=== PATIENT | male | born 1935 | race Caucasian/White ===

== ENCOUNTER → 2021-02-20 16:12 | Outpatient (CLI) | payer MEDICARE, SELFPAY ==
--- NOTE | ~2021-02-20 | XR_ITS ---
EXAMINATION: XR lumbar spine 2-3V DATE: 02/20/2021 16:57 INDICATION: Thoracic back pain. Right pelvic pain. TECHNIQUE: 3 views of the lumbar spine were obtained. COMPARISON: Lumbar spine radiographs 04/29/2016 FINDINGS: There is 6 degrees levocurvature of lumbar spine. There is 3 mm retrolisthesis of L1 on L2 and L2 on L3. Vertebral body heights are normal. There is severely decreased disc height from L1-L2 t hrough L3-L4, mildly decreased disc height at L4-L5, and moderately decreased disc height at L5-S1 wi th endplate remodeling. There is multilevel severe facet joint osteoarthritis. There is Baastrup dise ase from L2-L3 through L4-L5. IMPRESSION: 1. Severe lumbar spondylosis, worsened from 04/29/2016. Reviewed, dictated and finalized at location A.
--- NOTE | ~2021-02-20 | XR_ITS ---
EXAMINATION: XR thoracic spine 2V DATE: 02/20/2021 16:57 INDICATION: Thoracic back pain. TECHNIQUE: 3 views of thoracic spine on 4 radiographs were obtained. COMPARISON: Chest 2 views 12/30/2016 FINDINGS: There is 4 degrees dextrocurvature of thoracic spine. There is kyphosis of thoracic spine. There is mild chronic anterior wedging of T11 and T12 vertebral bodies. There are endplate osteophyte s at all levels. There are bridging endplate osteophytes from T4 to T11, consistent with diffuse idio pathic skeletal hyperostosis (DISH). There is mildly decreased disc height at multiple levels in uppe r thoracic spine. There are pacer wires in right atrium and right ventricle. IMPRESSION: 1. Mild thoracic spondylosis. 2. DISH. Reviewed, dictated and finalized at location A.
--- NOTE | ~2021-02-20 | XR_ITS ---
EXAMINATION: XR pelvis 1-2V DATE: 02/20/2021 16:57 INDICATION: Right pelvic pain. TECHNIQUE: An anteroposterior view of the pelvis was obtained on 2 radiographs. COMPARISON: None. FINDINGS: Bone alignment is normal. No fracture. There is severe lumbar spondylosis. There is mild os teoarthritis of the hips. IMPRESSION: 1. Mild osteoarthritis of the hips. Reviewed, dictated and finalized at location A.
--- NOTE | ~2021-02-20 | XR_ITS ---
EXAMINATION: XR sacroiliac joints min 3V DATE: 02/20/2021 16:57 INDICATION: Right sacroiliac joint pain. TECHNIQUE: 3 views of the sacroiliac joints were obtained. COMPARISON: None. FINDINGS: Bone alignment is normal. No fracture. There is mild osteoarthritis of the sacroiliac joint s. There is severe lumbar spondylosis. IMPRESSION: 1. Mild osteoarthritis of the sacroiliac joints. No evidence of inflammatory arthropathy. Reviewed, dictated and finalized at location A. IMPRESSION: 1. Mild osteoarthritis of the sacroiliac joints. No evidence of inflammatory ar thropathy.
== END ==
PROVIDERS: PCP Internal Medicine; Visit Provider Internal Medicine
DX: G89.29 Other chronic pain (principal); M54.6 Pain in thoracic spine; M47.814 Spondylosis without myelopathy or radiculopathy, thoracic region; M48.14 Ankylosing hyperostosis [Forestier], thoracic region; M47.816 Spondylosis without myelopathy or radiculopathy, lumbar region; M47.898 Other spondylosis, sacral and sacrococcygeal region; M16.0 Bilateral primary osteoarthritis of hip
CPT/HCPCS: 72070; 72100; 72170; 72202

== ENCOUNTER 2022-10-17 03:08 | Day surgery (SDC) | payer MEDICARE, SELFPAY ==
[2022-10-10 12:59] VITALS: BMI 33.8
[2022-10-17 12:53] VITALS: BP 150/71; PULSE 97; RESP 20; TEMP 36.4; O2SAT 99
[2022-10-17] MEDS: LACTATED RINGERS 1,000 ML 150 ML IV CONT (13:01)
--- NOTE | 2022-10-17 13:09 | PM.HPGS ---
History of Present Illness History of Present Illness Consent: Risks, benefits, and alternatives have been discussed and questions answered. Patient agrees to proceed with procedure. Chief complaint: melena, diverticulosis,diverticulitis,neoplasm Narrative: Mati Clayton is a 86 year old male Referred for colon cancer screening. He had several polyps removed about 5 years ago. Review of Systems Review of Systems: All systems reviewed & are unremarkable except as noted in HPI and below PMFSH Past Medical History Medical History A-fib Abnormal finding of blood chemistry Abnormal thyroid blood test BMI 33.0-33.9,adult BMI 34.0-34.9,adult BMI 35.0-35.9,adult BPH (benign prostatic hyperplasia) BPPV (benign paroxysmal positional vertigo) Cardiac pacemaker in situ Choking episode Chronic back pain Chronic cough Chronic low back pain Chronic right shoulder pain Cold intolerance Depressed mood Ear pain Elevated PSA Encounter for routine adult health examination with abnormal findings Encounter for routine adult health examination without abnormal findings Follow up Gross hematuria Hearing loss Hx of colonic polyps Hyperlipidemia Light-headed feeling Low back pain at multiple sites On prison drug therapy VICK on CPAP Other viral warts Overactive bladder Pain of finger of right hand Parkinsons Peripheral neuropathy Persistent postural-perceptual dizziness Right hip pain Skin tag Tremor Type 2 diabetes mellitus without complications Urinary frequency Vitamin D deficiency Surgical History Surgical History S/P cataract extraction Family History Family History Mother Family history of Alzheimer's disease Sibling Family history of diabetes mellitus in first degree relative Social History Social History Smoking status: Never smoker Second hand tobacco smoke exposure: No Alcohol intake: current Substance use: never Substance use type: does not use Lack of Transportation: No Lack of Food: Never True Current Housing: I Have Housing Concerned About Future Housing: No Difficulty Paying Gas/Electric Bills: No Difficulty Paying for Meds: No Education: Master's Degree or Higher Difficulty w/ Childcare or Family Care: No Living arrangements: with family Occupation/Education: retired Gender identity (if verbalized by the patient): Male Spiritual care concerns: No Meds Home Medications and Allergies Home Medications Medication Instructions Recorded Confirmed Type ibuprofen 200 mg tablet 200 mg PO Q6H PRN Pain 10/19/19 10/14/22 History pseudoephedrine HCl 30 mg tablet 30 mg PO Q4-6H PRN Allergy Symptoms 10/19/19 10/14/22 History (Sudafed) fesoterodine 4 mg tablet,extended 4 mg PO DAILY #90 tabs 06/09/22 10/14/22 Rx release 24 hr (Tostephanie) escitalopram oxalate 20 mg tablet See Rx Instructions .Route 06/12/22 10/14/22 Rx .COMPLEX #90 tabs finasteride 5 mg tablet See Rx Instructions .Route 06/12/22 10/14/22 Rx .COMPLEX #90 tabs rosuvastatin 40 mg tablet See Rx Instructions .Route 09/25/22 10/14/22 Rx .COMPLEX #90 tabs carbidopa 25 mg-levodopa 100 mg See Rx Instructions .Route 09/30/22 10/17/22 Rx tablet .COMPLEX #360 tabs azelastine 137 mcg (0.1 %) nasal See Rx Instructions .Route 10/10/22 10/10/22 History spray aerosol .COMPLEX PRN Allergy Symptoms tizanidine 4 mg capsule See Rx Instructions .Route 10/10/22 10/10/22 History .COMPLEX PRN Spasms metformin 500 mg tablet See Rx Instructions .Route 10/16/22 10/17/22 Rx .COMPLEX #180 tabs Allergies Allergy/AdvReac Type Severity Reaction Status Date / Time No Known Allergies Allergy Verified 10/17/22 12:50 Vital Signs Vital Signs - 24 hr 10/17/22 12:53 Temperature 36.4 C
--- NOTE | 2022-10-17 13:16 | WPDANESEPPF ---
Anes - Initial Pre Proc Eval Procedure: Operation Date: 10/17/22 14:00 Proposed Procedures p Colonoscopy - James Huntley MD Date/Time: 10/17/22 13:16 Surgeon: James Huntley MD Pre Op Diagnosis: melena, diverticulosis,diverticulitis,neoplasm Patient Data Age: 86 Gender: M Height: 1.75 m Weight: 94.1 kg Last Vital Signs Temp 97.6 F 10/17/22 12:53 Pulse 97 10/17/22 12:53 Resp 20 10/17/22 12:53 BP 150/71 H 10/17/22 12:53 Pulse Ox 99 10/17/22 12:53 O2 Del Method Room Air 10/17/22 12:53 Allergies Allergy/AdvReac Type Severity Reaction Status Date / Time No Known Allergies Allergy Verified 10/17/22 12:50 Home Medications Medication Instructions Recorded Confirmed Type ibuprofen 200 mg tablet 200 mg PO Q6H PRN Pain 10/19/19 10/14/22 History pseudoephedrine HCl 30 mg tablet 30 mg PO Q4-6H PRN Allergy Symptoms 10/19/19 10/14/22 History (Sudafed) fesoterodine 4 mg tablet,extended 4 mg PO DAILY #90 tabs 06/09/22 10/14/22 Rx release 24 hr (Toviaz) escitalopram oxalate 20 mg tablet See Rx Instructions .Route 06/12/22 10/14/22 Rx .COMPLEX #90 tabs finasteride 5 mg tablet See Rx Instructions .Route 06/12/22 10/14/22 Rx .COMPLEX #90 tabs rosuvastatin 40 mg tablet See Rx Instructions .Route 09/25/22 10/14/22 Rx .COMPLEX #90 tabs carbidopa 25 mg-levodopa 100 mg See Rx Instructions .Route 09/30/22 10/17/22 Rx tablet .COMPLEX #360 tabs azelastine 137 mcg (0.1 %) nasal See Rx Instructions .Route 10/10/22 10/10/22 History spray aerosol .COMPLEX PRN Allergy Symptoms tizanidine 4 mg capsule See Rx Instructions .Route 10/10/22 10/10/22 History .COMPLEX PRN Spasms metformin 500 mg tablet See Rx Instructions .Route 10/16/22 10/17/22 Rx .COMPLEX #180 tabs Patient hx anesthesia problems: none Family hx anesthesia problems: none Results Review: All pre-operative results and documents have been reviewed as part of the pre-operative evaluation. [facility] Past Medical History Medical History (Updated 10/09/22 @ 13:26 by Rosi Ramirez [facility]) A-fib Abnormal finding of blood chemistry Abnormal thyroid blood test BMI 33.0-33.9,adult BMI 34.0-34.9,adult BMI 35.0-35.9,adult BPH (benign prostatic hyperplasia) BPPV (benign paroxysmal positional vertigo) Cardiac pacemaker in situ Choking episode Chronic back pain Chronic cough Chronic low back pain Chronic right shoulder pain Cold intolerance Depressed mood Ear pain Elevated PSA Encounter for routine adult health examination with abnormal findings Encounter for routine adult health examination without abnormal findings Follow up Gross hematuria Hearing loss Hx of colonic polyps Hyperlipidemia Light-headed feeling Low back pain at multiple sites On continuous churn 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 VICK on CPAP Other viral warts Overactive bladder Pain of finger of right hand Parkinsons Peripheral neuropathy Persistent postural-perceptual dizziness Right hip pain Skin tag Tremor Type 2 diabetes mellitus without complications Urinary frequency Vitamin D deficiency Surgical History Surgical History S/P cataract extraction Family History Family History Mother Family history of Alzheimer's disease Sibling Family history of diabetes mellitus in first degree relative Social History Social History Smoking status: Never smoker Second hand tobacco smoke exposure: No Alcohol intake: current Substance use: never Substance use type: does not use Lack of Transportation: No Lack of Food: Never True Current Housing: I Have Housing Concerned About Future Housing: No Difficulty Paying Gas/Electric Bills: No Difficulty Paying for Meds: No Education: Master's Degree or Higher Difficulty w/ Childcare or Family Care: No Living arrangements: with famil
[2022-10-17 13:38] LABS: Glucose Point of Care 99 mg/dl (65-105)
[2022-10-17 14:06] VITALS: BP 120/70; PULSE 69; RESP 21; O2SAT 94
[2022-10-17 14:16] VITALS: BP 141/80; PULSE 66; RESP 23; O2SAT 96
[2022-10-17 14:26] VITALS: BP 141/71; PULSE 66; RESP 21; O2SAT 97
--- NOTE | 2022-10-17 14:53 | SUR.PHASEII ---
pt has parkinsons and took several minutes for pt to get dressed for discharge, then taken to restroom per w/c.
== END 2022-10-17 14:48 | disposition home or self-care (01) ==
PROVIDERS: PCP Internal Medicine; Visit Provider Internal Medicine Gastroenterology
PROC: 0DJD8ZZ Inspection of Lower Intestinal Tract, Via Natural or Artificial Opening Endoscopic (ICD-10-PCS; CPT 45378; principal; 2022-10-17 14:00)
DX: Z12.11 Encounter for screening for malignant neoplasm of colon (principal); K92.1 Melena; K57.30 Diverticulosis of large intestine without perforation or abscess without bleeding; D12.0 Benign neoplasm of cecum; I48.91 Unspecified atrial fibrillation; N40.0 Benign prostatic hyperplasia without lower urinary tract symptoms; E78.5 Hyperlipidemia, unspecified; G47.33 Obstructive sleep apnea (adult) (pediatric); G20 Parkinson's disease; E11.42 Type 2 diabetes mellitus with diabetic polyneuropathy; E55.9 Vitamin D deficiency, unspecified; Z79.84 Long term (current) use of oral hypoglycemic drugs; Z95.0 Presence of cardiac pacemaker; E66.9 Obesity, unspecified; Z68.30 Body mass index [BMI] 30.0-30.9, adult
CPT/HCPCS: 45385; 82948; 88305; J2704; J7120

== ENCOUNTER 2025-03-04 22:49 | Emergency (ER) | payer MEDICARE, SELFPAY ==
[2025-03-04] VITALS (7 sets, daily range): BP systolic 103–124; BP diastolic 53–75; PULSE 66–76; RESP 15–22; TEMP 36.6; O2SAT 100
--- NOTE | ~2025-03-04 | XR_ITS ---
Portable chest x-ray Comparison: 12/30/2016 Clinical History: GI bleed Findings: Lungs are clear, without focal consolidation or pleural effusion. Cardiomediastinal silho uette is stable, with pacemaker device. Bones and soft tissues are unremarkable. Impression: Clear lungs. Reviewed, dictated and finalized at location . Impression: Clear lungs.
--- NOTE | ~2025-03-04 | CT_ITS ---
CT of the Abdomen and Pelvis: Indication: GI bleed Technique: 2.5 mm axial scans were obtained through the abdomen and pelvis following intravenous adm inistration of 100 cc of Omnipaque 350. Dose reduction technique was used on this scan by utilizing a utomated exposure control and iterative reconstruction technique. The dose-length product (DLP) was 1 288.30 mGy-cm. COMPARISON: 04/19/2024 Findings: Scans through the lung bases are unremarkable. The liver, spleen, pancreas, gallbladder, adrenals and kidneys are within normal limits. No evidence of aortic aneurysm. No lymphadenopathy. There is curvilinear markedly hyperdense material in the mid sigmoid colon, compatible with active GI bleed in this region. This is best seen on axial images 128-139. No bowel obstruction or definite b owel wall thickening evident. Images through the pelvis were performed. Urinary bladder unremarkable. Prostate gland is markedly en larged. No ascites. Impression: Findings consistent with active GI bleed with contrast extravasation into the mid sigmoid colon. Plea se see details above. Markedly enlarged prostate gland. Reviewed, dictated and finalized at location M. Impression: Findings consistent with active GI bleed with contrast extravasation into the m id sigmoid colon. Please see details above. Markedly enlarged prostate gland.
[2025-03-04 23:08] LABS: Hematocrit 39.4 % (42.0-52.0); Hemoglobin 12.4 g/dL (14.0-18.0); Immature Granulocyte Percent A 0.4 % (0-0.5); Lymphocytes Absolute Auto 1.04 K/mm3 (0.9-3.2); Mean Corpuscular HGB Conc 31.5 g/dl (32-36); Mean Corpuscular Hemoglobin 26.7 pg (26-34); Mean Corpuscular Volume 84.7 fl (80-100); Nucleated Red Blood Cells Absolute Auto 0.000 K/mm3 (0.0-0.012); Nucleated Red Blood Cells Perc 0.0 % (0.0-0.2); Platelet Count Result 226 k/mm3 (150-375); Red Blood Count 4.65 M/mm3 (4.6-6.20); White Blood Count 6.9 K/mm3 (4.5-10.0)
[2025-03-04 23:22] LABS: INR 1.2; Partial Thromboplastin Time 28.5 Seconds (22.3-36.8); Prothrombin Time 14.7 Seconds (11.1-14.7)
--- NOTE | 2025-03-04 23:22 | ECG_ITS ---
Test Date: 2025-03-04 23:52:55 Measurements Intervals [place] Rate: 64 P: -85 NH: 136 QRS: -75 QRSD: 213 T: 91 QT: 526 QTc: 546 Interpretive Statements SINUS RHYTHM WITH ELECTRONIC VENTRICULAR PACEMAKER ATYPICAL ECG No previous ECG available for comparison Electronically Signed On 03-05-2025 11:34:22 CDT by Ghulam Castro M.D.
[2025-03-04 23:23] LABS: Alanine Aminotransferase 14 U/L (6-50); Albumin Level 3.5 g/dL (3.5-5.1); Alkaline Phosphatase 56 U/L (38-126); Anion Gap 8 mmol/L (4-12); Aspartate Amino Transferase 26 U/L (17-59); Bilirubin,Total 0.4 mg/dL (0.2-1.3); Blood Urea Nitrogen 29 mg/dL (9-20); Calcium 8.5 mg/dL (8.4-10.2); Carbon Dioxide 24 mmol/L (22-30); Chloride 106 mmol/L (98-107); Estimated CRCL calculation 41 ml/min; Estimated Glomerular Filt Rate 58; Glucose 106 mg/dL (65-110); Lipase 125 U/L (23-300); Magnesium 2.5 mg/dL (1.6-2.3); Potassium 4.6 mmol/L (3.4-5.0); Sodium 138 mmol/L (137-145); Total Protein 6.0 g/dL (6.3-8.2)
[2025-03-04] MEDS: SODIUM CHLORIDE 0.9% IV 1,000 ML 999 ML (23:44)
[2025-03-05] VITALS (39 sets, daily range): BP systolic 85–123; BP diastolic 49–84; PULSE 62–88; RESP 12–21; TEMP 36.4–36.6; O2SAT 94–100
--- OUTSIDE RECORDS SUMMARY | 2025-03-05 00:26 | XMS_ITS | Referral Summary ---
Author Organization [facility] [place] [address] [facility] [address] Address [address] [place] [address] Care Team Providers Care Metal Flooring Installer Name Role Phone Maynor Tavarez MD Primary Care Provider [phone] Encounters Date Type Department Care Team Description 01/20/2025 2:30 PM CDT Office Visit [facility] Cardiology [address] [facility] [address] [place] [address] Ana Terry NP Cardiomyopathy, unspecified type (HCC) (Primary Dx); Paroxysmal atrial fibrillation (HCC); Presence of Watchman left atrial appendage closure device; Pacemaker 01/03/2025 8:15 AM CDT Ancillary Procedure [facility] Medical [facility] Cardiology [facility] [address] [place] [phone] Mobitz type 2 second degree AV block; Pacemaker 01/02/2025 Telephone [facility] Cardiology [address] [place] [address] Advanced Medicine 8th [place] [address] [place] [phone] Alva Kaur NP see enc 12/30/24 12/30/2024 Telephone [facility] Cardiology [address] [place] [address] 8th [place] [address] [place] [address] Alva Kaur NP questions re: follow up appt 12/29/2024 Telephone [facility] Cardiology [address] [facility] 8th [place] [address] [place] [address] Alva Kaur NP 12/28/2024 2:00 PM CDT Telemedicine [facility] Cardiology [address] [place] [address] 8th [place] [address] [place] [address] Alva Kaur NP Paroxysmal atrial fibrillation (HCC) (Primary Dx) 12/14/2024 Results Follow-Up [facility] Cardiology [address] [place] [address] 8th [place] [address] [place] [address] Pelon Eagle MD PhD Transesophageal Echo (MARTINE) W Doppler/CF 12/09/2024 10:20 AM CDT Anesthesia Event [facility] [address] [phone] Faheem Nolasco MD Eddins, Daniel Raymond, SALLY 12/09/2024 Telephone [facility] Cardiology [address] [place] [address] 8th [place] [address] [place] [address] SmithSabine goel 12/09/2024 7:11 AM CDT - 12/09/2024 11:59 PM CDT Hospital Encounter [facility] [address] [address] Faheem Nolasco MD Paroxysmal atrial fibrillation (HCC) Discharge Disposition: Discharge to home or self care 12/08/2024 Telephone [facility] Cardiology [address] [place] [address] 8th [place] [address] [place] [address] Pelon Eagle MD PhD echo inquiry 12/08/2024 Telephone [facility] V[facility] [address] [phone] Joseline Evans RN from Last 3 Months Allergies Active Allergy Reactions Criticality Noted Date Comments Bee Pollen Eye irritation High 01/06/2023 Eyes water and itch Medications rosuvastatin (CRESTOR) 20 mg tablet take 1 tablet by oral route every day 0 0 7 Active coenzyme Q10 (COQ-10) 100 mg capsule take 1 by Oral route 2 times every day 0 0 7 Active finasteride (PROSCAR) 5 mg tablet take 1 tablet by oral route every day 0 0 7 Active magnesium oxide 400 mg capsule take 1 by Oral route once 0 0 7 Active escitalopram (LEXAPRO) 20 mg tablet take 1 tablet by oral route every day 0 0 7 Active omega 5-bpe-ojn-fish oil 1,200 (144-216) mg capsuleIndication s:OTC/ Heart / good health Take 1 tablet by mouth daily after lunch Active vitamin E 400 unit capsuleIndication s:otc Take 1 capsule (400 Units total) by mouth daily after lunch Active metFORMIN (GLUCOPHAGE) 500 mg tabletIndications :Prevention of Type 2 Diabetes Mellitus Take 1 tablet (500 mg total) by mouth 2 (two) times a day 2 Active carbidopa-levodop a (SINEMET) 25-100 mg per tabletIndications :Parkinsonism Take 1 tablet by mouth 4 (four) times a day 2 Active fesoterodine ER (Toviaz) 4 mg tablet extended release 24 hrIndications:Mc dder Hyperactivity Take 1 tablet (4 mg total) by mouth nightly Active venlafaxine XR (EFFEXOR-XR) 150 mg 24 hr capsuleIndication s:Anxiety with Depression Take 1 capsule (150 mg total) by mouth every morning Active HYDROcodone-aceta minophen (NORCO) 5-325 mg per tablet Take 1 tablet by mouth as needed for pain 4 Active melatonin 5 mg tablet Take 1 tablet (5 mg total) by mouth nightly Active polyethylene glycol (MIRALAX) 17 gram/dose bulk powderIndications :constipation Take 17 g by mouth every morning Active tamsulosin (FLOMAX) 0.4 mg extended release capsuleIndication s:benign prostatic hyperplasia with lower urinary tract sx Take 1 capsule (0.4 mg total) by mouth nightly 4 Active Restasis 0.05 % ophthalmic emulsion Administer 1 drop into both eyes 2 (two) times a day 4 Active azelastine (ASTELIN) 137 mcg (0.1 %) nasal sprayIndications: Seasonal Allergic Rhinitis Administer 1 spray into each nostril as needed for rhinitis or allergies Active turmeric root extract 500 mg capsuleIndication s:OTC/ Joint pain Take 500 mg by mouth daily after lunch Active vitamin b complex tabletIndications :Vitamin Deficiency Prevention Take 1 tablet by mouth daily after lunch Active alpha lipoic acid 200 mg capsuleIndication s:OTC/ Take 1 tablet by mouth daily after lunch Active zinc gluconate 50 mg tabletIndications :OTC/ immune system Take 1 tablet (50 mg total) by mouth daily after lunch Active UNABLE TO FINDIndications:O TC/ joints Take 1 each by mouth daily after lunch Boswella 300mg Active acetaminophen (TYLENOL) 500 mg tablet Take 1 tablet (500 mg total) by mouth as needed for pain Active simethicone (GAS-X) 180 mg capsule Take 1 capsule (180 mg total) by mouth as needed for flatulence Active ascorbic acid (ascorbic acid with macy hips) 500 mg tablet,chewableIn dications:Vitamin C Deficiency,OTC/ Take 1 tablet/chew tab (500 mg total) by mouth nightly Active clopidogreL (PLAVIX) 75 mg tablet Take 1 tablet (75 mg total) by mouth daily 30 tablet 2 5 Active metoprolol XL (TOPROL-XL) 25 mg extended release tablet Take 0.5 tablets (12.5 mg total) by mouth daily 15 tablet 2 5 Active aspirin 81 mg chewable tabletIndications :coronary artery disease Take 1 tablet (81 mg total) by mouth daily 30 tablet 2 5 Active famotidine (PEPCID) 40 mg tablet Take 1 tablet (40 mg total) by mouth daily 5 Active sacubitriL-valsar romero (ENTRESTO) 49-51 mg tabletIndications :chronic heart failure Take 1 tablet by mouth 2 (two) times a day 180 tablet 3 5 Active empagliflozin (JARDIANCE) 10 mg tabletIndications :Cardiomyopathy, unspecified type (HCC) Take 1 tablet (10 mg total) by mouth daily 90 tablet 3 5 Active Active Problems Problem Noted Date Diagnosed Date Presence of Watchman left atrial appendage closu re device 11/08/2024 Presence of Amulet left atrial appendage closure device 11/08/2024 Assessment & Plan (11/08/2024 3:41 PM CDT): -s/p Amulet LAAO implant -started aspirin 81mg and plavix 75mg, after 6 months de-escalation to aspirin 325mg will be considered -complete 4 hour bedrest -ancef q 8hr x 2 doses -cxr, labs in am -TTE in am to rule out device leak -monitor RFV access site -OOBTC and ambulate as tolerated with assist once bedrest complete -45 day postop MARTINE and EP f/u -avoid heavy lifting, strenous activities, driving for one week -telemetry -discharge home in am pending labs and imaging Parkinson's disease with dyskinesia 11/08/2024 Assessment & Plan (11/08/2024 3:46 PM CDT): -continue sinemet Hypertension 11/08/2024 Assessment & Plan (11/08/2024 3:55 PM CDT): -not on antihypertensives at home, has been intermittently hypertensive during visits with 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 Alternate [place] remote monitoring, office checks Q6 mo. Battery Advisory. LAAO placed 11/08/24 Social History Tobacco Use Types Packs/Day Years Used Date Smoking Tobacco: Never Smokeless Tobacco: Never Tobacco Cessation:Counseling Given: Not Answered Alcohol Use Standard Drinks/Week Comments No 0 (1 standard drink = 0.6 oz pur e alcohol) [facility] Utilities Answer Date Recorded In the past 12 months has th e electric, gas, oil, or water company threatened to shut off services in your home? No 11/10/2024 Social Connection and Isolat ion Panel [NHANES] Answer Date Recorded In a typical week, how many times do you talk on the phone with family, friends, or neighbors? More than three times a week 11/10/2024 How often do you get togethe r with friends or relatives? More than three times a week 11/10/2024 How often do you attend chur ch or lutheran services? Never 11/10/2024 Do you belong to any clubs o r organizations such as oriental orthodox groups, unions, fraternal or athletic groups, or school groups? No 11/10/2024 How often do you attend meet ings of the clubs or organizations you belong to? Never 11/10/2024 Are you , , di vorced, , never , or living with a partner? 11/10/2024 AUDIT-C Answer Date Recorded Q1: How often do you have a drink containing alcohol? Never 11/08/2024 Q2: How many drinks containi ng alcohol do you have on a typical day when you are drinking? Patient does not drink Q3: How often do you have si x or more drinks on one occasion? Never 11/08/2024 Overall Financial Resource Strain (CARDIA) Answe r Date Recorded How hard is it for you to pa y for the very basics like food, housing, medical care, and heating? Not hard at all 11/10/2024 Hunger Vital Sign Answer Date Recorded Within the past 12 months, y ou worried that your food would run out before you got the money to buy more. Never true 11/11/19 Within the past 12 months, t he food you bought just didn't last and you didn't have money to get more. Never true 11/10/2024 PRAPARE - Transportation Answer Date Re corded In the past 12 months, has l ack of transportation kept you from medical appointments or from getting medications? No 10/23 In the past 12 months, has l ack of transportation kept you from meetings, work, or from getting things needed for daily living? No 11/10/2024 Housing Stability Vital Sign Answer Ulisses e Recorded In the last 12 months, was t here a time when you were not able to pay the mortgage or rent on time? No 11/10/2024 In the past 12 months, how m any times have you moved where you were living? 0 11/10/2024 At any time in the past 12 m [facility], were you homeless or living in a penitentiary (including now)? No 11/10/2024 Personal Safety Answer Date Recorded Have you ever been in or are you currently in a harmful physical or emotional relationship or is someone making you feel afraid or unsafe? 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 Gender Identity Not on file Sexual Orientation Not on file Last Filed Vital Signs Vital Sign Reading Time Taken Comments Blood Pressure 124/52 01/20/2025 2:41 PM CDT Pulse 68 01/20/2025 2:41 PM CDT Temperature 36.8 C (98.2 F) 12/09/2024 7:40 AM CDT Respiratory Rate 17 12/09/2024 12:35 PM CDT Oxygen Saturation 98% 01/20/2025 2:41 PM CDT Inhaled Oxygen Concentration - - Weight 87.1 kg (192 lb) 01/20/2025 2:41 PM CDT Height 170.2 cm (5' 7) 01/20/2025 2:41 PM CDT Body Mass Index 30.07 01/20/2025 2:41 PM CDT Plan of Treatment Not on file Medical Devices Implanted Type Area Detective Sergeant Device Identifier Shelf Expiration Date Model / Serial / Lot [employer] Percutaneous Transcatheter Amplatzer Amulet 22mm [id number] - [id number] - [id number] Implanted:Qty: 1 on 11/08/2024 by Pelon Eagle MD PhD at [facility] Left Atrial Appendage Occluder Left: Atrial Appendage [employer] 02/20/2029 [id number] / [id number] / [id number] Pacemaker- 017 Implanted:12/29 by Tristan Zhong MD (Quantity not on file) Pacemaker Left: Chest [employer] [id number] / [id number] / [employer] System Closure Repair Femoral Artery Suture Mediated Perclose Prostyle 99224-84 - [id number] - [id number] Implanted:Qty: 1 on 11/08/2024 by Pelon Eagle MD PhD at [facility] Vascular Closure Device Right: Femoral Vein [employer] 08/23/2026 [id number] / [id number] / [id number] Procedures Procedure Name Priority Date/Time Associated Diagnosis Comments POCT GLUCOSE DEVICE Routine 12/09/2024 1 1:38 AM CDT TRANSESOPHAGEAL ECHO (MARTINE) W DOPPLER/CF WO CONTRAST Routine 12/09/2024 10:58 AM CDT Paroxysmal atrial fibrillation (HCC) POCT GLUCOSE DEVICE Routine 12/09/2024 8 :38 AM CDT from Last 3 Months Results * POCT glucose (12/09/2024 11:38 AM CDT) Glucose, POC 95 70 - 199 mg/dL Blood 12/09/2024 11:3 8 AM CDT 12/09/2024 11:38 AM CDT us Faheem Nolasco MD LAB POCT ORDERABLES - DEV ICE Final Result [facility] Department of Laboratories [place], [place] [id number] * TRANSESOPHAGEAL ECHO (MARTINE) W DOPPLER/CF WO CONTRAST (12/09/2024 10:58 AM CDT) Pathologist [facility] LV EF 20-25 % CONS SCIMAGE Anatomical Region Laterality Modality Echocardiography 12/09/2024 7:17 AM CDT Narrative 12/14/2024 9:11 AM CDT [facility] [place] [address] Transesophageal Echocardiographic Report Patient Name: MATTY VERA E : 1935 (88y 11m) Gender: M Study Date: 12/09/2024 07:17:08 AM Ht(Inch): Wt(Lb): BSA: [facility] [employer] [facility] Director: Location: [facility] Order Provider: PELON EAGLE BMI: Ref Provider: SANDRITA PELON - PROCEDURES: Transesophageal Echo Report: Echocardiography, transesophageal, real-time with image documentation (2D) including probe placement, image acquisition, interpretation, and report; Doppler echocardiography, limited pulsed wave and/or continuous wave with spectral display; Doppler echocardiography color flow velocity mapping; 3D echocardiography, rendering with interpretation and reporting, not requiring post-processing on an independent workstation. Performing Physician: Performed by Jose Sawyer and Devika Vasquez. MARTINE probe placed by Devika Vasquez. Consent: Informed consent was obtained from the patient in writing. The risks and benefits of the procedure were explained in detail to the patient, including but not limited to the risk of aspiration, dysphagia, and esophageal perforation. After a thorough discussion of these risks and benefits, the patient agreed to proceed. Description: A complete transesophageal echocardiogram study was performed. Additional evaluation with color flow Doppler and limited spectral Doppler was performed. Continuous HR, BP, ECG, and O2 sat monitoring was performed during the procedure. The patient received pre-procedural education. Baseline vital signs and a focused history and physical were obtained. The MARTINE study was then performed under deep sedation with IV propofol provided by the anesthesiology service. After suitable sedation, the probe was passed without difficulty. Continuous pulse oximetry, electrocardiographic monitoring, and blood pressure monitoring were maintained throughout the procedure. No complications were noted. INDICATIONS: I48.0 Paroxysmal atrial fibrillation. FINDINGS: Study Quality: Good. Left Ventricle: Left ventricular systolic function appears severely reduced. LV Ejection Fraction is visually estimated to be 20-25 %. Right Ventricle: Right ventricular systolic function appears normal. Left Atrium: Moderately dilated left atrium. An occluder device is present in the left atrial appendage. The device is well seated with no evidence of color flow into the appendage. Atrial Septum: Normal interatrial septum. Mitral Valve: Mild mitral valve regurgitation. Aortic Valve: Trileaflet aortic valve. Aortic cusps appear moderately calcified. Mild aortic valve regurgitation. Tricuspid Valve: There is mild tricuspid regurgitation. Pulmonic Valve: No evidence of pulmonic regurgitation. Pericardium: Normal pericardium with no pericardial effusion. CONCLUSIONS: 1. Left ventricular systolic function appears severely reduced. 2. Moderately dilated left atrium. 3. Normal interatrial septum. An occlusion device is seen across the left atrial appendage and color flow Doppler shows no residual flow across the device. 4. Mild mitral valve regurgitation. 5. Trileaflet aortic valve. Aortic cusps appear moderately calcified. Mild aortic valve regurgitation. 6. There is mild tricuspid regurgitation. 7. Normal pericardium with no pericardial effusion. ATTESTATION: I have personally reviewed this study with a fellow in a teaching setting and attest to the findings and conclusions. - DISCLAIMER: The study images and the final report will be retained in the patient chart by the Echo Laboratory for the legally required time period. This chart constitutes the legal record of any testing performed. MEASUREMENTS: 2D/MM Value Range Estimated EF 20-25 % Electronically Signed By: Jose Sawyer MD 12/14/2024 9:10:53 AM CDT Procedure Note Jose Sawyer MD - 12/14/2024 [facility] [place] [address] Transesophageal Echocardiographic Report Patient Name: MATTY VERA E : 1935 (88y 11m) Gender: M Study Date: 12/09/2024 07:17:08 AM Ht(Inch): Wt(Lb): BSA: [employer] Director: Location: [facility] Order Provider: PELON EAGLE: Ref Provider: PELON EAGLE - PROCEDURES: Transesophageal Echo Report: Echocardiography, transesophageal, real-timewith image documentation (2D) including probe placement, image acquisition,interpretation, and report; Doppler echocardiography, limited pulsed wave and/or continuouswave with spectral display; Doppler echocardiography color flow velocity mapping; 3D echocardiography, rendering with interpretation and reporting, notrequiring post-processing on an independent workstation. Performing Physician: Performed by Jose Sawyer and Devika Vasquez. TEEprobe placed by Devika Vasquez. Consent: Informed consent was obtained from the patient in writing. Therisks and benefits of the procedure were explained in detail to the patient,including but not limited to the risk of aspiration, dysphagia, and esophageal perforation.After a thorough discussion of these risks and benefits, the patient agreed toproceed. Description: A complete transesophageal echocardiogram study wasperformed. Additional evaluation with color flow Doppler and limited spectral Doppler wasperformed. Continuous HR, BP, ECG, and O2 sat monitoring was performed during the procedure. Thepatient received pre-procedural education. Baseline vital signs and a focusedhistory and physical were obtained. The MARTINE study was then performed under deepsedation with IV propofol provided by the anesthesiology service. After suitable sedation,the probe was passed without difficulty. Continuous pulse oximetry, electrocardiographicmonitoring, and blood pressure monitoring were maintained throughout the procedure. Nocomplications were noted. INDICATIONS: I48.0 Paroxysmal atrial fibrillation. FINDINGS: Study Quality: Good. Left Ventricle: Left ventricular systolic function appears severelyreduced. LV Ejection Fraction is visually estimated to be 20-25 %. Right Ventricle: Right ventricular systolic function appears normal. Left Atrium: Moderately dilated left atrium. An occluder device is presentin the left atrial appendage. The device is well seated with no evidence of color flowinto the appendage. Atrial Septum: Normal interatrial septum. Mitral Valve: Mild mitral valve regurgitation. Aortic Valve: Trileaflet aortic valve. Aortic cusps appear moderatelycalcified. Mild aortic valve regurgitation. Tricuspid Valve: There is mild tricuspid regurgitation. Pulmonic Valve: No evidence of pulmonic regurgitation. Pericardium: Normal pericardium with no pericardial effusion. CONCLUSIONS: 1. Left ventricular systolic function appears severely reduced. 2. Moderately dilated left atrium. 3. Normal interatrial septum. An occlusion device is seen across the leftatrial appendage and color flow Doppler shows no residual flow across thedevice. 4. Mild mitral valve regurgitation. 5. Trileaflet aortic valve. Aortic cusps appear moderately calcified. Mildaortic valve regurgitation. 6. There is mild tricuspid regurgitation. 7. Normal pericardium with no pericardial effusion. ATTESTATION: I have personally reviewed this study with a fellow in a teaching settingand attest to the findings and conclusions. - DISCLAIMER: The study images and the final report will be retained in the patientchart by the Echo Laboratory for the legally required time period. This chart constitutesthe legal record of any testing performed. MEASUREMENTS: 2D/MM Value Range Estimated EF 20-25 % Electronically Signed By: Jose Sawyer MD 12/14/2024 9:10:53 AM CDT us Pelon Eagle MD PhD CV ECHO PROCEDURES Fin al Result * POCT glucose (12/09/2024 8:38 AM CDT) Glucose, POC 87 70 - 199 mg/dL Blood 12/09/2024 8:38 AM CDT 12/09/2024 8:38 AM CDT us Faheem Nolasco MD LAB POCT ORDERABLES - DEV ICE Final Result [facility] Department [place] [address] from Last 3 Months Insurance MEDICARE MEDICARE [facility] MEDICARE SUPPLEMENT [facility] MEDICARE SUPPLEMENT MEDICARE Advance Directives For more information, please contact: [phone] * Full Code (Latest Code Status on File) Date Activated Date Inactivated Comments 11/08/2024 9:27 AM 11/09/2024 10:58 PM Care Teams Metal Flooring Installer Relationship Specialty Start Date End Date Maynor Tavarez MD [address] [facility] [address] INTER[address] MEDICINE [place], [place] [id number] PCP - General 07/27/13
--- OUTSIDE RECORDS SUMMARY | 2025-03-05 00:27 | XMS_ITS | Encounter Summary ---
Author Organization [facility] Address [address] [facility] [address] [place] [address] Care Team Providers Care Sample Maker Name Role Phone Maynor Tavarez MD Primary Care Provider [phone] Shakila Henderson SOLAR ENERGY INSTALLATION MANAGER Unavailable [phone] Encounter Details Date Type Department Care Team (Late st Contact Info) Description 12/30/2016 Orders Only [facility] ProviderBrianna MD [address] [place] [id number] Social History Tobacco Use Types Packs/Day Years Used Date Smoking Tobacco: Never Alcohol Use Standard Drinks/Week Comments No 0 (1 standard drink = 0.6 oz pur e alcohol) Sex and Gender Information Value Date Recorded Sex Assigned at Not on file 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 Historical Provider [facility] JI PEREZ Final Result documented in this encounter Visit Diagnoses Not on filedocumented in this encounter Care Teams Sample Maker Relationship Specialty Start Date End Date Maynor Tavarez MD [address] [facility] [address] [place] [address] PCP - General 07/27/13 Shakila Henderson LCSW [address] [facility] ([facility] Mailstop [phone] [place] [address] [facility] Outpatient Tamper Operator 11/10/24 11/22/24 documented as of this encounter
--- OUTSIDE RECORDS SUMMARY | 2025-03-05 00:27 | XMS_ITS | Clinical Summary ---
Author Organization [facility] Address [address] [place] [address] Care Team Providers Care Dry Plasterer Helper Name Role Phone Maynor Tavarez MD Primary Care Provider [phone] Source Comments [facility] Affiliates and Associated Physician Practices is amultiple site organization consisting of ambulatory clinics and hospital sitesin [place], [place], [place] and [place]. This disclosure is being madepursuant to the Care Everywhere program and may not contain all information available regarding this patient. Last updated 18.[facility] Allergies Active Allergy Reactions Criticality Noted Date Comments Pollen Extract Eye Itching High 01/07/2023 Eyes water and itch Medications * Be aware that medications may not be up to date on this document. Alwaysverify current medications with the patient. carbidopa-levodo pa (Sinemet) 25-100 MG tabletIndication s:Parkinson's Disease Take 1 (one) tablet by mouth 4 times daily Reasons: Parkinson's Disease Active escitalopram (Lexapro) 20 MG tablet Take 1 (one) tablet by mouth once daily Active finasteride (Proscar) 5 MG tablet Take 1 (one) tablet by mouth once daily Active HYDROcodone-acet aminophen (Linden) 5-325 MG tablet Take 1 (one) tablet by mouth every 6 hours as needed for Pain Active magnesium oxide (Mag-Ox) 400 MG tablet Take 1 (one) tablet by mouth once daily With supper Active metFORMIN (Glucophage) 500 MG tablet Take 1 (one) tablet by mouth 2 times daily with morning and evening meal Active hkgtt-1-lgup ethyl esters (Lovaza) 1 g capsuleIndicatio ns:1200 mg Take 1 (one) capsule by mouth once daily Reasons: 1200 mg Active omeprazole (PriLOSEC) 20 MG capsuleIndicatio ns:Acid Indigestion Take 1 (one) capsule by mouth once daily as needed for Heartburn Reasons: Acid Indigestion Active rosuvastatin (Crestor) 40 MG tablet Take 1 (one) tablet by mouth at bedtime Active Active Problems Problem Noted Date Diagnosed Date Slurred speech 01/09/2023 Lower GI bleed 01/06/2023 Family History Medical History Relation Name Comments Depression Brother Diabetes; unknown type Brother Glaucoma Father Cancer - Breast Mother Depression Sister Relation Name Status Comments Brother Father Mother Sister Social History Tobacco Use Types Packs/Day Years Used Date Smoking Tobacco: Never Smokeless Tobacco: Never Tobacco Cessation:Counseling Given: Not Answered Alcohol Use Standard Drinks/Week Comments Not Currently 0 (1 standard drink = 0.6 oz pur e alcohol) Overall Financial Resource Strain (CARDIA) Answe r Date Recorded How hard is it for you to pa y for the very basics like food, housing, medical care, and heating? Not very hard 01/09/2023 [facility] - Occupational Stress Questionnaire Answer Date Recorded Do you feel stress - tense, restless, nervous, or anxious, or unable to sleep at night because your mind is troubled all the time - these days? Not at all 01/09/2023 Hunger Vital Sign Answer Date Recorded Within the past 12 months, y ou worried that your food would run out before you got the money to buy more. Never true 01/10/20 23 Within the past 12 months, t he food you bought just didn't last and you didn't have money to get more. Never true 01/09/2023 [facility] - Transportation Answer Date Re corded In the past 12 months, has l ack of transportation kept you from medical appointments or from getting medications? No 12/22 In the past 12 months, has l ack of transportation kept you from meetings, work, or from getting things needed for daily living? No 01/09/2023 Housing Stability Vital Sign Answer Ulisses e Recorded In the last 12 months, was t here a time when you were not able to pay the mortgage or rent on time? No 01/09/2023 In the last 12 months, how many places have you lived? 1 01/09/2023 In the last 12 months, was t here a time when you did not have a steady place to sleep or slept in a chcf (including now)? 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 Gender Identity Not on file Sexual Orientation Not on file Last Filed Vital Signs Vital Sign Reading Time Taken Comments Blood Pressure 175/83 01/10/2023 11:38 AM CDT Pulse 72 01/10/2023 11:38 AM CDT Temperature 36.4 C (97.6 F) 01/10/2023 11:38 AM CDT Respiratory Rate 16 01/10/2023 11:38 AM CDT Oxygen Saturation 99% 01/10/2023 11:38 AM CDT Inhaled Oxygen Concentration - - Weight 99 kg (218 lb 4.1 oz) 01/07/2023 5:00 PM CDT Height 172.7 cm (5' 8) 01/07/2023 5:00 PM CDT Body Mass Index 33.19 01/07/2023 5:00 PM CDT Plan of Treatment Health Maintenance Due Date Last Done Comments MEDICARE AWV 12 MONTHS 1937 DTAP/TDAP/TD VACCINES (1 - Tdap) 1956 PNEUMOCOCCAL VACCINE 50+ (1 of 1 - PCV) 12/13/1987 ZOSTER VACCINE (1 of 2) 12/13/1987 Respiratory Syncytial Virus (RSV) Vaccine Pt: or over 60 yrs (1 - 1-dose 75+ series) 2012 COVID-19 VACCINE ( - 2023-2 5 season) 2024 DEPRESSION SCREENING 08/24/2024 INFLUENZA VACCINE (#1) 2025 HEPATITIS B VACCINE Aged Out No longe r eligible based on patient's age to complete this topic HIB VACCINE Aged Out No longer eligi ble based on patient's age to complete this topic HPV VACCINE Aged Out No longer eligi ble based on patient's age to complete this topic MENINGOCOCCAL (Group B) VACC INE SHARED DECISION-MAKING Aged Out No longer eligibl e based on patient's age to complete this topic MENINGOCOCCAL GROUPS A/C/Y/W VACCINE Aged Out No longer eligible b ased on patient's age to complete this topic [place] [address] MEDICARE [facility] Advance Directives * Full Code (Latest Code Status on File) Date Activated Date Inactivated Comments 01/07/2023 6:41 PM 01/10/2023 3:38 PM Care Teams Dry Plasterer Helper Relationship Specialty Start Date End Date Maynor Tavarez MD [address] [place] [id number] [facility] - General 11/03/22
--- OUTSIDE RECORDS SUMMARY | 2025-03-05 00:27 | XMS_ITS | Encounter Summary ---
Author Organization [facility] Address [address] [facility] [address] [place] [address] Care Team Providers Care Construction Administrator Name Role Phone Maynor Tavarez MD Primary Care Provider [phone] Shakila Henderson ACADEMIC ADVISOR Unavailable Encounter Details Date Type Department Care Team (Late st Contact Info) Description 12/24/2016 Orders Only [facility] ProviderBrianna MD [address] [place] [address] Social History Tobacco Use Types Packs/Day Years Used Date Smoking Tobacco: Never Alcohol Use Standard Drinks/Week Comments No 0 (1 standard drink = 0.6 oz pur e alcohol) Sex and Gender Information Value Date Recorded Sex Assigned at Not on file 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 Historical Provider [facility] Final Result documented in this encounter Visit Diagnoses Not on filedocumented in this encounter Care Teams Construction Administrator Relationship Specialty Start Date End Date Maynor Tavarez MD [address] [place] [address] PCP - General 07/27/13 Shakila Henderson LCSW [address] [facility] ([facility] Mailstop [id number] [place] [address] [facility] Outpatient Senior Mobile Web Developer 11/10/24 11/22/24 documented as of this encounter
--- OUTSIDE RECORDS SUMMARY | 2025-03-05 00:27 | XMS_ITS | Encounter Summary ---
Author Organization [facility] Address [address] [facility] [address] [place] [address] Care Team Providers Care Hop Farmer Name Role Phone Maynor Tavarez MD Primary Care Provider [phone] Shakila Henderson CIGARETTE PACKING MACHINE OPERATOR Unavailable [phone] Encounter Details Date Type Department Care Team (Late st Contact Info) Description 12/29/2016 Orders Only [facility] ProviderBrianna MD [address] [place] [address] Social History Tobacco Use Types Packs/Day Years Used Date Smoking Tobacco: Never Alcohol Use Standard Drinks/Week Comments No 0 (1 standard drink = 0.6 oz pur e alcohol) Sex and Gender Information Value Date Recorded Sex Assigned at Not on file 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 Historical Provider [facility] Final Result documented in this encounter Visit Diagnoses Not on filedocumented in this encounter Care Teams Hop Farmer Relationship Specialty Start Date End Date Maynor Tavarez MD [address] [place] [address] PCP - General 07/27/13 Shakila Henderson LCSW [address] [facility] ([facility] [place] Mailstop [phone] [place] [address] [facility] Outpatient Ornamental Metal Worker 11/10/24 11/22/24 documented as of this encounter
--- OUTSIDE RECORDS SUMMARY | 2025-03-05 00:27 | XMS_ITS | Encounter Summary ---
Author Organization [facility] Address [address] [facility] [address] [place] [address] Care Team Providers Care Slip Caster Name Role Phone Maynor Tavarez MD Primary Care Provider [phone] Shakila Henderson DIRECTOR FIELD SERVICES Unavailable Encounter Details Date Type Department Care Team (Late st Contact Info) Description 11/24/2016 Orders Only [facility] ProviderBrianna MD [address] [place] [address] Social History Tobacco Use Types Packs/Day Years Used Date Smoking Tobacco: Never Assessed Sex and Gender Information Value Date Recorded Sex Assigned at Not on file Legal Sex Male 7:00 PM SENIOR MANAGER CREATIVE SERVICES Gender Identity Not on file Sexual Orientation Not on file documented as of this encounter Plan of Treatment Not on file documented as of this encounter Procedures Procedure Name Priority Date/Time Associated Diagnosis Comments CARDIOLOGY REPORT 11/24/2016 documented in this encounter Results * CARDIOLOGY REPORT (11/24/2016) Anatomical Region Laterality Modality Other Narrative 11/24/2016 Ordered by an unspecified provider. Historical Provider [facility] Final Result documented in this encounter Visit Diagnoses Not on filedocumented in this encounter Care Teams Slip Caster Relationship Specialty Start Date End Date Maynor Tavarez MD [address] [place] [address] PCP - General 07/27/13 Shakila Henderson LCSW [address] [facility] [place] [place] Mailstop [phone] [place] [address] SHOP Outpatient Zone Supervisor Firearms 11/10/24 11/22/24 documented as of this encounter
--- OUTSIDE RECORDS SUMMARY | 2025-03-05 00:27 | XMS_ITS | Encounter Summary ---
Author Organization [facility] Address [address] [facility] [address] [place] [address] Care Team Providers Care Lacquer Shader Name Role Phone Maynor Tavarez MD Primary Care Provider [phone] Shakila Henderson OPERATIONS RESEARCH ENGINEER Unavailable Encounter Details Date Type Department Care Team (Late st Contact Info) Description 01/05/2017 Orders Only [facility] ProviderBrianna MD [address] [place] [address] Social History Tobacco Use Types Packs/Day Years Used Date Smoking Tobacco: Never Alcohol Use Standard Drinks/Week Comments No 0 (1 standard drink = 0.6 oz pur e alcohol) Sex and Gender Information Value Date Recorded Sex Assigned at Not on file 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 Historical Provider [facility] P[facility] Final Result documented in this encounter Visit Diagnoses Not on filedocumented in this encounter Care Teams Lacquer Shader Relationship Specialty Start Date End Date Maynor Tavarez MD [address] [place] [address] PCP - General 07/27/13 Shakila Henderson LCSW [address] [facility] ([facility] [place]) Mailstop [phone] [place] [address] SHOP Outpatient Block Placer 11/10/24 11/22/24 documented as of this encounter
--- OUTSIDE RECORDS SUMMARY | 2025-03-05 00:27 | XMS_ITS | Data Portability ---
Author Organization [place] - [facility] Find That File [facility], Main Office Address [address] [place] [address] Care Team Providers Care Tactical Debriefer Officer Name Role Phone ALFONZO LEE Primary Care Provider ALFONZO LEE Referring Provider [phone] Assessment Encounter Date Assessment Date Assessment LastModified by Organization Details LastModified Time 02/01/2024 02/01/2024 This note is dictated and transcribed by [employer]. Piano Assembler variances may occur. Despite proofreading, typographical errors may occur. Occasional wrong-word or 'niita-l-htes' substitutions may have occurred due to the inherent limitations of voice recording. Read the chart carefully and recognize, using context, where substitutions have occurred. Not available 02/02/2024 09:45:50 05/02/2024 05/02/2024 This note is dictated and transcribed by [employer]. Piano Assembler variances may occur. Despite proofreading, typographical errors may occur. Occasional wrong-word or 'iakln-i-joax' substitutions may have occurred due to the inherent limitations of voice recording. Read the chart carefully and recognize, using context, where substitutions have occurred. Not available 05/23/2024 09:19:45 07/25/2024 07/25/2024 This note is dictated and transcribed by [employer]. Piano Assembler variances may occur. Despite proofreading, typographical errors may occur. Occasional wrong-word or 'rvfnj-o-airr' substitutions may have occurred due to the inherent limitations of voice recording. Read the chart carefully and recognize, using context, where substitutions have occurred. Not available 07/25/2024 15:21:24 10/24/2024 10/24/2024 This note is dictated and transcribed by [employer]. Piano Assembler variances may occur. Despite proofreading, typographical errors may occur. Occasional wrong-word or 'tjume-v-aqzh' substitutions may have occurred due to the inherent limitations of voice recording. Read the chart carefully and recognize, using context, where substitutions have occurred. Not available 10/24/2024 14:39:19 01/30/2025 01/30/2025 This note is dictated and transcribed by [employer]. Piano Assembler variances may occur. Despite proofreading, typographical errors may occur. Occasional wrong-word or 'zqlqp-j-szgt' substitutions may have occurred due to the inherent limitations of voice recording. Read the chart carefully and recognize, using context, where substitutions have occurred. Not available 01/30/2025 14:51:32 Plan of Treatment Reminders Order Date Submit Date Provider Last Modified By Organization Details Last Modified Time Details Appointments Establish ed Patient 15 2024 01:30P Lydia Blanca DPM Not available Not available Not available Lab None recorded. Referral None recorded. Procedures None recorded. Surgeries None recorded. Imaging None recorded. Medication Orders None recorded. Patient TargetsNo targets recorded. Patient InstructionsNo instructions recorded. Reason for Referral None Reported. Problems Name Problem SNOMED Code Status Onset Date Resolution Date Notes Provider Name and Address Organization Details Recorded Time Peripheral enthesopat hy 159173098 Active Not Available [facility] 3 01:19:23 Disorder of shoulder 258451382 Active Not Available [facility] 3 01:19:23 Injury of lower limb 763541625 Active Not Available [facility] 3 01:19:24 Partial thickness rotator cuff tear 681196154 Active Not Available [facility] 3 01:19:24 Idiopathic peripheral neuropathy 63865801 Active 2018 Not Available [facility] 3 01:19:24 Osteoarthr itis of knee 894943814 Active Not Available [facility] 3 01:19:24 Low back pain 533171562 Active Not Available [facility] 3 01:19:24 Knee pain Active Not Available [facility] 3 01:19:24 Pain in right foot 2523313198236 07 Active 2021 Not Available [facility] 3 01:19:24 Keloid scar 20193768 Active Not Available [facility] 3 01:19:24 Depressive disorder 61944058 Active 2017 Not Available [facility] 3 01:19:24 Arthritis 5209338 Active 2017 Not Available [facility] 3 01:19:24 Bicipital tenosynovi tis 95674947 Active Not Available [facility] 3 01:19:25 Obesity 713409261 Active 2017 Not Available [facility] 3 01:19:25 Onychomyco sis 594615785 Active 2018 Not Available [facility] 3 01:19:25 Contusion of toe 93304014 Active 2019 Not Available [facility] 3 01:19:25 Long-term current use of anticoagul ant 927640674 Active 2018 Not Available [facility] 3 01:19:25 Sleep apnea 19734612 Active 2017 Not Available [facility] 3 01:19:25 Prostatiti s 2769242 Active 2017 Not Available [facility] 3 01:19:25 Onychomyco sis of toenails 316740219 Active 2022 Randell Blanca DPM [address], [address], [place], [address] , [employer] 3 14:34:40 Diabetes mellitus 04132301 Active 2022 Randell Blanca DPM [address], [address], [place], [address] , [employer] 3 14:57:44 Unable to cut own toenails 887579901 Active 2022 Randell Blanca DPM [address], [address], [place], [address] , [employer] 3 14:12:33 Seborrheic dermatitis 69448321 Active 2023 Randell Blanca DPM [address], [address], [place], [address] , [employer] 4 14:47:22 Dystrophia unguium 72485937 Active 2023 Randell Blanca DPM [address], [address], [place], [address] , [employer] 4 09:45:31 Problem Notes None recorded. Procedures Surgical History Date Name Laterality Status Provider Name and Address Organization Details Recorded Time 5 Nail Debridement completed Randell Blanca DPM [address], [address], [place], [address], [employer] 01/30/2025 14:51:23 5 Nail Debridement completed Randell Blanca DPM [address], [address], [place], [address], [employer] 10/24/2024 14:39:10 4 Nail Debridement completed Randell Blanca DPM [address], [address], [place], [address], [employer] 07/25/2024 15:21:16 4 Nail Debridement completed Randell Blanca DPM [address], [address], [place], [address], [employer] 05/23/2024 09:19:36 4 Nail Debridement completed Randell Blanca DPM [address], [address], [place], [address], [employer] 02/02/2024 09:45:05 4 Nail Debridement completed Randell Blanca DPM [address], [address], [place], [address], [employer] 11/20/2023 16:11:11 3 Nail Debridement completed Randell Blanca DPM [address], [address], [place], [address], [facility] [employer] [facility] 08/05/2023 14:11:11 3 Nail Debridement completed Randell Blanca DPM [address], [address], [place], [address], [facility] [employer] [facility] 05/04/2023 14:56:46 3 Nail Debridement completed Randell Blanca DPM [address], [address], [place], [address], [facility] [employer] [facility] 01/26/2023 14:52:22 3 Nail Debridement completed Randell Blanca DPM [address], [address], [place], [address], [facility] [employer] [facility] 10/27/2022 14:34:32 Imaging Results None recorded. Procedure Notes None recorded. Medical Equipment None Reported. Allergies No known drug allergies Medications Name Sig Start Date Stop Date Status Note LastModified by Organization Details LastModified Time amoxicillin 500 mg capsule 01/24 completed Not Available Not Available Not Available metformin 500 mg tablet TAKE 1 TABLET BY MOUTH TWICE A DAY active Not Available Not Available No t Available venlafaxine ER 75 mg capsule,ext ended release 24 hr TAKE 1 CAPSULE BY MOUTH EVERY DAY 07/25 completed Not Available Not Available Not Available carbidopa ER 25 mg-levodopa 100 mg tablet,exte nded release TAKE 1 TABLET BY MOUTH AT BEDTIME 10/24 completed Not Available Not Available Not Available tizanidine 4 mg tablet TAKE 1 TABLET BY MOUTH THREE TIMES DAILY NEEDED FOR MUSCLE SPASTICIT Y 11/01 completed Not Available Not Available Not Available fluconazole 150 mg tablet 10/20 completed Not Available Not Available Not Available hydrocodone 5 mg-acetamin ophen 325 mg tablet TAKE 1 TABLET BY MOUTH FOUR TIMES DAILY NEEDED FOR PAIN active Not Available Not Available No t Available famotidine 40 mg tablet TAKE 1 TABLET BY MOUTH EVERY DAY active Not Available Not Available No t Available venlafaxine ER 150 mg capsule,ext ended release 24 hr TAKE 1 CAPSULE BY MOUTH EVERY DAY active Not Available Not Available No t Available penicillin V potassium 500 mg tablet 01/24 completed Not Available Not Available Not Available meclizine 12.5 mg tablet 11/01 completed Not Available Not Available Not Available metronidazo le 500 mg tablet TAKE 1 TABLET (500 MG TOTAL) BY MOUTH 3 (THREE) TIMES DAILY FOR 8 DAYS. 11/01 completed Not Available Not Available Not Available clopidogrel 75 mg tablet TAKE 1 TABLET BY MOUTH EVERY DAY active Not Available Not Available No t Available fondaparinu x 2.5 mg/0.5 mL subcutaneou s solution syringe 01/24 completed Not Available Not Available Not Available Celebrex 200 mg capsule 01/24 completed Not Available Not Available Not Available oxycodone-a cetaminophe n 5 mg-325 mg tablet 01/24 completed Not Available Not Available Not Available methocarbam ol 750 mg tablet 01/24 completed Not Available Not Available Not Available tamsulosin 0.4 mg capsule TAKE 1 CAPSULE BY MOUTH EVERYDAY AT BEDTIME active Not Available Not Available No t Available hydrocodone 7.5 mg-acetamin ophen 325 mg tablet 01/24 completed Not Available Not Available Not Available cephalexin 500 mg capsule 01/20 completed Not Available Not Available Not Available ferrous sulfate 325 mg (65 mg iron) tablet TAKE 1 TABLET BY MOUTH TWICE A DAY 11/01 completed Not Available Not Available Not Available tobramycin 0.3 % eye drops USE 1 DROP INTO RIGHT EYE UP TO FOUR TIMES DAILY NEEDED FOR STYE 07/25 completed Not Available Not Available Not Available aspirin 81 mg chewable tablet TAKE 1 TABLET BY MOUTH EVERY DAY active Not Available Not Available No t Available metoprolol succinate ER 25 mg tablet,exte nded release 24 hr TAKE 1/2 TABLET BY MOUTH EVERY DAY active Not Available Not Available No t Available azelastine 137 mcg (0.1 %) nasal spray SPRAY 1 SPRAY INTO EACH NOSTRIL EVERY 12 HOURS NEEDED FOR ALLERGY SYMPTOMS active Not Available Not Available No t Available diazepam 10 mg tablet TAKE 1 TABLET 1 HOUR BEFORE PROCEDURE 11/01 completed Not Available Not Available Not Available levofloxaci n 750 mg tablet TAKE 1 TABLET (750 MG TOTAL) BY MOUTH DAILY FOR 8 DAYS. 08/05 completed Not Available Not Available Not Available scopolamine 1 mg over [address] 1 PATCH ONTO SKIN EVERY 3RD DAY 11/01 completed Not Available Not Available Not Available carbidopa 25 mg-levodopa 100 mg tablet TAKE 1 TABLET BY MOUTH FOUR TIMES A DAY active Not Available Not Available No t Available finasteride 5 mg tablet TAKE 1 TABLET BY MOUTH EVERY DAY active Not Available Not Available No t Available tobramycin 0.3 %-dexametha sone 0.1 % eye drops,suspe nsion 01/24 completed Not Available Not Available Not Available escitalopra m 20 mg tablet TAKE 1 TABLET BY MOUTH EVERY DAY active Not Available Not Available No t Available Avodart 0.5 mg capsule 01/24 completed Not Available Not Available Not Available cyclosporin e 0.05 % eye drops in a dropperette INSTILL 1 DROP INTO BOTH EYES TWICE A DAY active Not Available Not Available No t Available Vigamox 0.5 % eye drops 01/24 completed Not Available Not Available Not Available rosuvastati n 20 mg tablet TAKE 1 TABLET BY MOUTH EVERY DAY active Not Available Not Available No t Available rosuvastati n 40 mg tablet TAKE 1 TABLET BY MOUTH EVERY DAY 11/01 completed Not Available Not Available Not Available epinastine 0.05 % eye drops 01/24 completed Not Available Not Available Not Available tizanidine 4 mg capsule TAKE 1 CAPSULE BY MOUTH 3 TIMES A DAY NEEDED FOR MUSCLE SPASM 11/01 completed Not Available Not Available Not Available ketoconazol e 2 % topical gel APPLY TO THE AFFECTED AREA(S) skin rash of foot BY TOPICAL ROUTE ONCE DAILY 07/25 completed Not Available Not Available Not Available Durezol 0.05 % eye drops 01/24 completed Not Available Not Available Not Available Toviaz 4 mg tablet,exte nded release TAKE 1 TABLET BY MOUTH EVERY DAY active Not Available Not Available No t Available Suprep Bowel Prep Kit 17.5 gram-3.13 gram-1.6 gram oral solution 11/10 completed Not Available Not Available Not Available Ilevro 0.3 % eye drops,suspe nsion 01/24 completed Not Available Not Available Not Available Jublia 10 % topical solution with applicator 01/24 completed Not Available Not Available Not Available Jardiance 10 mg tablet TAKE 1 TABLET BY MOUTH EVERY DAY active Not Available Not Available No t Available Entresto 49 mg-51 mg tablet TAKE 1 TABLET BY MOUTH TWICE A DAY active Not Available Not Available No t Available Entresto 24 mg-26 mg tablet TAKE 1 TABLET BY MOUTH TWICE A DAY active Not Available Not Available No t Available Vitals Date Recorded Body height Body mass index (BMI) Body weight Provider Name and Address Organization Details Last Updated DateTime 10/24/2024 172.72 cm 33.5 kg/m2 74631.32 g Alisa Reynolds [place] [employer] [facility] Find That File [facility] 10/24/2024 14:04:45 Date Recorded Body height Body mass index (BMI) Body weight Provider Name and Address Organization Details Last Updated DateTime 01/30/2025 172.72 cm 33.5 kg/m2 61023.32 g Lizeth Falk [facility] Find That File [facility] 01/30/2025 14:15:50 Date Recorded Body height Body mass index (BMI) Body weight Heart rate Respiratory rate Body temperature Oxygen saturation Oxygen saturation in Arterial blood by Pulse oximetry Systolic And Diastolic Provider Name and Address Organization Details Last Updated DateTime 4 172.72 cm 33.5 kg/m2 46328.3 2 g 80 /min 16 /min 97.4 [degF] 96 % 96 % 130/76 mm[Hg] [facility] 4 14:30:52 Date Recorded Body height Body mass index (BMI) Body weight Heart rate Respiratory rate Body temperature Oxygen saturation Oxygen saturation in Arterial blood by Pulse oximetry Systolic And Diastolic Provider Name and Address Organization Details Last Updated DateTime 4 172.72 cm 33.5 kg/m2 06446.3 2 g 67 /min 16 /min 97.8 [degF] 96 % 96 % 130/80 mm[Hg] [facility] 4 14:03:31 Date Recorded Body height Body mass index (BMI) Body weight Heart rate Respiratory rate Oxygen saturation Oxygen saturation in Arterial blood by Pulse oximetry Systolic And Diastolic Provider Name and Address Organization Details Last Updated DateTime 4 172.72 cm 33.5 kg/m2 13311.3 2 g 79 /min 14 /min 98 % 98 % 158/77 mm[Hg] Alisa Reynolds [place] [employer] [facility] [employer] [facility] 4 14:09:35 Social History Question Answer Notes LastModified by Organizat ion Details LastModified Time Tobacco Smoking Status Never Smoker Not Available [employer] 10/22/2022 01:02:42 In The 14 Days Before Symptom Onset, Have You Had Close Contact With A Laboratory-confirm ed COVID-19 While That Case Was Ill? No [id number] Information not available 10/22/2022 In The 14 Days Before Symptom Onset, Have You Had Close Contact With A Person Who Is Under Investigation For COVID-19 While That Person Was Ill? No [id number] Information not available 10/22/2022 Have You Recently Traveled Abroad? No [id number] Information not available 10/22/2022 Sex: Unknown Functional Status None recorded. Mental Status None recorded. Family History Relationship Description Onset Age of this Age Resolved Age Notes LastModified by Organization Details LastModified Time Brother Diabetes mellitus nichole Not available 04/24 14:17:06 Medical History Condition Response PROSTATE Y DEPRESSION (INCLUDING POST ) Y OBESITY Y ARTHRITIS Y NEUROPATHY Y Past Encounters Encounter ID Performer Location Encounter Start Date Encounter Closed Date Diagnosis/Indication Diagnosis SNOMED-CT Code Diagnosis ICD10 Code Diagnosis Note [id number] [facility] [place] [address] [place] [address] 10/25/2020 00:00:00 10/26/2020 09:32:35 [id number] [facility] [place] [address] [place] [address] 01/17/2021 00:00:00 01/18/2021 14:44:24 [id number] [facility] [place] [address] [place] [address] 04/22/2021 00:00:00 04/22/2021 14:15:20 [id number] [facility] [place] [address] [place] [address] 07/25/2021 00:00:00 07/28/2021 22:13:59 [id number] [facility] [place] [address] [place] [address] 10/24/2021 00:00:00 10/28/2021 11:04:46 [id number] [facility] [place] [address] [place] [address] 01/23/2022 00:00:00 01/24/2022 13:09:05 [id number] [facility] [place] [address] [place] [address] 04/24/2022 00:00:00 04/29/2022 10:39:54 [id number] [facility] [place] [address] [place] [address] 07/24/2022 00:00:00 07/25/2022 10:51:27 [id number] Randell Blanca DPM [facility] [place] [address] [place] [address] 10/27/2022 13:47:51 10/28/2022 14:33:39 Onychomycosis of toenails 642087003 B35.1 Patient was educated on treatment options of onychomyco sis. Patient's nails 1 through 10 were debrided without incident. Patient defers pharmacolo gical management due to possible side effects and will continue with conservati ve options. Return to clinic as needed every 3 months for this problem [id number] Randell Blanca DPM [facility] [place] [address] [place] [address] 01/26/2023 14:06:37 01/27/2023 10:12:36 Onychomycosis of toenails 940780241 B35.1 Patient was educated on treatment options of onychomyco sis. Patient's nails 1 through 10 were debrided without incident. Patient defers pharmacolo gical management due to possible side effects and will continue with conservati ve options. Return to clinic as needed every 3 months for this problem [id number] Randell Blanca DPM [facility] [place] [address] [place] [address] 05/04/2023 14:02:30 05/18/2023 11:46:40 Diabetes mellitus 00161548 E11.9 Patient educated on neuropathy , diabetes, diabetic diet, and daily foot exams. Patient is to check feet daily for new wounds, blisters, redness to prevent infection and ulceration s to the feet. Patient will return to clinic in 3 months for diabetic foot workup.con tinue diabetic control per PCP Onychomyco sis of toenails 628182479 B35.1 patient denies pharmacolo gical management Recommend over-the-c ounter topical antifungal agentnails debrided without incidentFo llow-up as needed for nail care [id number] Randell Blanca DPM [facility] [place] [address] [place] [address] 08/03/2023 14:49:55 08/05/2023 16:37:32 Diabetes mellitus 08076966 E11.9 Continue diabetic control per PCP Continue supportive shoe gear Check feet daily for wounds infection Follow-up in 3 months Onychomyco sis of toenails 098143580 B35.1 patient denies pharmacolo gical management Recommend over-the-c ounter topical antifungal agentnails debrided without incidentFo llow-up as needed for nail care Unable to cut own toenails 539007967 Z74.1 Secondary to onychodyst rophy [id number] Randell Blanca DPM [facility] [place] [address] [place] [address] 11/02/2023 14:13:55 11/20/2023 16:34:11 Seborrheic dermatitis 57778753 L21.9 Rx ketoconazo lefollow-u p 2 weeks if not resolved Diabetes mellitus 922788 09 E11.9 Continue diabetic control per PCP Continue supportive shoe gear Check feet daily for wounds infection Follow-up in 3 months Onychomyco sis of toenails 075023826 B35.1 nails debrided without incident Unable to cut own toenails 512906071 Z74.1 Secondary to onychodyst rophy [id number] Randell Blanca DPM [facility] [place] [address] [place] [address] 02/01/2024 14:09:12 02/02/2024 11:25:03 Diabetes mellitus 43377859 E11.9 Continue diabetic control per PCP Continue supportive shoe gear Check feet daily for wounds infection Follow-up in 3 months Dystrophia unguium 44910 009 L60.3 Nails debrided without incident Unable to cut own toenails 144477927 Z74.1 Secondary to onychodyst rophy [id number] Randell Blanca DPM [facility] [place] [address] [place] [address] 05/02/2024 13:54:36 05/23/2024 11:16:08 Diabetes mellitus 39016157 E11.9 Continue diabetic control per PCP Continue supportive shoe gear Check feet daily for wounds infection Follow-up in 3 months Dystrophia unguium 52790 009 L60.3 Nails debrided without incident [id number] Randell Blanca DPM [facility] [place] [address] [place] [address] 07/25/2024 13:50:16 08/18/2024 16:32:28 Diabetes mellitus 25818470 E11.9 Continue diabetic control per PCP Continue supportive shoe gear Check feet daily for wounds infection Follow-up in 3 months Dystrophia unguium 19842 009 L60.3 Nails debrided without incident [id number] Randell Blanca DPM [facility] [place] [address] [place] [address] 10/24/2024 13:59:08 10/26/2024 08:14:54 Diabetes mellitus 71391697 E11.9 Continue diabetic control per PCP Continue supportive shoe gear Check feet daily for wounds infection Follow-up in 3 months Dystrophia unguium 19647 009 L60.3 Nails debrided without incident [id number] Randell Blanca DPM [facility] [place] [address] [place] [address] 01/30/2025 13:54:45 01/31/2025 11:06:05 Diabetes mellitus 67114583 E11.9 Continue diabetic control per PCP Continue supportive shoe gear Check feet daily for wounds infection Follow-up in 3 months Dystrophia unguium 52176 009 L60.3 Nails debrided without incident Health Concerns Section Related Observation LastModified by Organization Detai ls LastModified Time None Recorded Concern Status LastModified by Organization Details LastModified Time None Recorded Advance Directives Directive None Recorded Payers Insurance Date Sequence Insurance Name Policy Number Policy Enriquez Covered Member ID Enriquez Member ID Guarantor Name 01/27/2025 1 [place] Mati Clayton [id number] Mati Clayton 01/27/2025 2 [place] [id number] Mati Clayton [id number] Mati Clayton Notes Date Note Type Note Provider Name and Address Organization Details Recorded Time 02/01/2024 text/html Patient is an 88-year-old male who returns the office for routine diabetic foot care. Patient denies any new wounds or pain with walking. Patient requests his nails be cut as he is unable to cut them. Patient denies any other complaints. Randell Blanca DPM [address], [place] [address], [place], [address], [employer] 02/02/2024 09:46:08 05/02/2024 text/html . Patient is an 88-year-old male diabetic who returns the office for diabetic foot care. Patient states overall he is doing well he denies any open wounds or infections of the foot. Patient states he does have difficulty walking he denies any recent falls or foot pain. Patient states his toenails are thick and long and he is unable to cut them like to have them cut. Patient denies any other complaints. Randell Blanca DPM [address], [facility] [address], [place], [address], [employer] 05/23/2024 09:20:09 07/25/2024 text/html . Patient is an 88-year-old male who returns for routine foot care follow-up. Patient states he has long toenails which he can not cut denies any other complaints. Patient states he is also diabetic he denies any wounds or numbness or tingling to the feet. Randell Blanca DPM [address], [address], [place], [address], [employer] 07/25/2024 15:21:37 10/24/2024 text/html . Patient is 88-year-old male who returns the office for routine foot care. Patient states his toenails are thickened elongated and painful. Patient states he is unable to cut them. Patient denies any other complaints. Randell Blanca DPM [address], [address], [place], [address], [employer] 10/24/2024 14:39:44 01/30/2025 text/html . Patient is an 89-year-old male diabetic who returns for diabetic foot care he states overall he is doing well denies any new complaints. Patient would like his nails cut as he can not cut them. Randell Blanca DPM [address], [address], [place], [address], [employer] 01/30/2025 14:51:45
--- OUTSIDE RECORDS SUMMARY | 2025-03-05 00:27 | XMS_ITS | Clinical Summary ---
Author Organization [facility] [place] [address] Address [address] [place] [address] Care Team Providers Care Saxophone Player Name Role Phone Maynor Tavarez MD Primary Care Provider [phone] Allergies Active Allergy Reactions Criticality Noted Date [...] every day 0 0 7 Active omega 9-wfy-sem-fish oil 1,200 (144-216) mg capsuleIndication s:OTC/ Heart [...] flatulence Active ascorbic acid (ascorbic acid with mayc hips) 500 mg tablet,chewableIn dications:Vitamin C Deficiency,OTC/ [...] intermittently hypertensive during visits with his primary quality control microbiologist -bp now 173-93, giving hydralazine 10mg iv once, repeat qh4 prn Paroxysmal atrial fibrillation 07/05/2024 Assessment & Plan (11/08/2024 3:43 PM CDT): -not a candidate for anticoagulation, s/p LAAO -currently paced -telemetry 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 Alternate Omkar remote monitoring, office checks Q6 mo. Battery Advisory. LAAO placed 11/08/24 Encounters Date Type Department Care Team Description 01/20/2025 2:30 PM CDT Office Visit [facility] Medical [facility] Cardiology [address] [address] [place] [phone] Ana Terry NP Cardiomyopathy, unspecified type (HCC) (Primary Dx); Paroxysmal atrial fibrillation (HCC); Presence of Watchman left atrial appendage closure device; Pacemaker 01/03/2025 8:15 AM CDT Ancillary Procedure [facility] Medical [facility] Cardiology [address] [facility] [address], [place] [phone] Mobitz type 2 second degree AV block; Pacemaker 01/02/[address] [place] [address] [place] [address] Alva Kaur NP see enc 12/30/24 12/30/[address] [place] [address] [place] [address] Alva Kaur NP questions re: follow up appt 12/29/[address] [place] [address] [place] [address] Alva Kaur NP 12/28/2024 2:00 PM CDT Telemedicine [facility] Cardiology [address] [place] [address] [place] [address] [place] [address] Alva Kaur NP Paroxysmal atrial fibrillation (HCC) (Primary Dx) 12/14/2024 Results Follow-Up [facility] Cardiology [address] [place] [address] [place] [address] Pelon Eagle MD PhD Transesophageal Echo (MARTINE) W Doppler/CF 12/09/2024 10:20 AM CDT Anesthesia Event [facility] Vascular [address] [address] Faheem Nolasco MD Eddins, Daniel Raymond, SALLY 12/09/2024 7:11 AM CDT - 12/09/2024 11:59 PM CDT Hospital Encounter [address] [address] Faheem Nolasco MD Paroxysmal atrial fibrillation (HCC) Discharge Disposition: Discharge to home or self care 12/09/2024 Telephone [facility] Cardiology [address] [place] [address] [place] [address] Smith, Sabine 12/08/2024 Telephone [facility] Cardiology [address] [place] [address] [place] [address] Pelon Eagle MD PhD echo inquiry 12/08/2024 Telephone [facility] Vascular [address] [address] Joseline Evans RN from Last 3 Months Surgical History Surgery Date Site/Laterality Comments JOINT REPLACEMENT 08/24/2012 - 08/23/2013 Left CATARACT EXTRACTION 08/24/2013 - 08/23/2014 Bilateral IMPLANTABLE CARDIAC DEVICE 11/08/2024 N/A Procedure: PERC KIERSTEN CLOSE W/IMPLANT 24443; Surgeon: Pelon Eagle MD PhD; Location: [facility] EP LAB; Service: Cardiovascular; Laterality: N/A; LAAO 1st case Medical devices from this surgery are in the Medical Devices section. Medical History Medical History Date Comments Pacemaker 01/31/2017 [employer] Assurity DDD pacemake implanted 12/28/2016 for Mobitz II-[employer] Card.-[place] Tardive dyskinesia Depression Neuropathy Parkinson disease (HCC) Family History Medical History Relation Name Comments Arrhythmia Father Other Father Unknown; Alzheimer's disease Mother Alzheime r's disease; Anesthesia problems Neg Hx Relation Name Status Comments Father Mother (Age 101) Social History Tobacco Use Types Packs/Day Years Used Date Smoking Tobacco: Never Smokeless Tobacco: Never Tobacco Cessation:Counseling Given: Not Answered Alcohol Use Standard Drinks/Week Comments No 0 (1 standard drink = 0.6 oz pur e alcohol) [facility] Utilities Answer Date Recorded In the past 12 months has e electric, gas, oil, or water company [...] week 11/10/2024 How often do you attend [facility] ch or jew services? Never 11/10/2024 Do you belong to any clubs o r organizations such as sikhism groups, unions, fraternal or athletic groups, or [...] any time in the past 12 m [facility], were you homeless or living in a halfway (including now)? No 11/10/2024 Personal Safety Answer Date Recorded Have you ever been in or are you currently in a harmful physical or emotional relationship or is someone making you feel afraid or unsafe? 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 Gender Identity Not on file Sexual Orientation Not on file Obstetrics History Last Filed Vital Signs Vital Sign Reading [...] 01/20/2025 2:41 PM CDT Plan of Treatment Health Maintenance Due Date Last Done Comments Depression Screening 1935 DTaP/Tdap/Td Vaccine (1 - Tdap) 1946 Hepatitis B Screening 12/13/1955 Pneumococcal vaccine 65+ (1 of 1 - PCV) 12/13/1987 Zoster Vaccine (1 of 2) 12/13/1987 Well Visit 65+ 2002 Influenza Vaccine (Season Ended) 2025 Fall Risk Assessment 12/09/2025 12/09/2024 Medical Devices Implanted Type Area Airset Molder Device Identifier Shelf Expiration Date Model / Serial / Lot [employer] V[employer] Percutaneous Transcatheter Amplatzer Amulet 22mm [id number] - [id number] - [id number] Implanted:Qty: 1 on 11/08/2024 by Pelon Eagle MD PhD at [facility] Left Atrial Appendage Occluder Left: Atrial Appendage [employer] 02/20/2029 [id number] / [id number] / [id number] Pacemaker- 017 Implanted:12/29 by Tristan Zhong MD (Quantity not on file) Pacemaker Left: Chest [employer] 2272 / [id number] / [employer] V[employer] System Closure Repair Femoral Artery Suture Mediated Perclose Prostyle 77810-48 - [id number] - [id number] Implanted:Qty: 1 on 11/08/2024 by Pelon Eagle MD PhD at [facility] Vascular Closure Device Right: Femoral Vein [employer] 08/23/2026 13713-57 / [id number] / [id number] Procedures Procedure Name Priority Date/Time Associated Diagnosis [...] ORDERABLES - DEV ICE Final Result [facility] [place] [address] * TRANSESOPHAGEAL ECHO (MARTINE) W DOPPLER/CF WO CONTRAST (12/09/2024 10:58 AM CDT) Pathologist [facility] LV EF 20-25 % CONS SCIMAGE Anatomical Region Laterality Modality Echocardiography 12/09/2024 7:17 AM CDT Narrative 12/14/2024 9:11 AM CDT [facility] [place] [address] Transesophageal Echocardiographic Report Patient Name: MATTY VERA E : 1935 (88y 11m) Gender: M Study Date: 12/09/2024 07:17:08 AM Ht(Inch): Wt(Lb): BSA: Patch Worker: Location: [facility] Order Provider: PELON EAGLE BMI: Ref Provider: PELON EAGLE - PROCEDURES: Transesophageal [...] Procedure Note Jose Sawyer MD - 12/14/2024 [facility] [place] [address] Transesophageal Echocardiographic Report Patient Name: MATTY VERA E : 1935 (88y 11m) Gender: M Study Date: 12/09/2024 07:17:08 AM Ht(Inch): Wt(Lb): BSA: Patch Worker: Location: [facility] Order Provider: PELON EAGLE BMI: Ref Provider: PELON EAGLE - PROCEDURES: Transesophageal [...] POCT ORDERABLES - DEV ICE Final Result [facility] Department of Laboratories [place], [place] [id number] from Last 3 Months Insurance MEDICARE MEDICARE [facility] MEDICARE SUPPLEMENT [facility] MEDICARE SUPPLEMENT MEDICARE Advance Directives For more information, please contact: [phone] * Full Code (Latest Code Status on File) Date Activated Date Inactivated Comments 11/08/2024 9:27 AM 11/09/2024 10:58 PM Care Teams Saxophone Player Relationship Specialty Start Date End Date Maynor Tavarez MD [address] [place] [address] PCP - General 07/27/13
[2025-03-05] MEDS: ONDANSETRON INJ 4 MG/2 ML VIAL IV PUSH (00:28)
[2025-03-05 00:51] LABS: Hematocrit 35.1 % (42.0-52.0); Hemoglobin 11.0 g/dL (14.0-18.0)
--- NOTE | 2025-03-05 01:44 | ED_ITS ---
HPI - General Adult General Chief complaint: GI Bleed Stated complaint: RECTAL BLEED Time Seen by Provider: 03/04/25 23:14 History of Present Illness HPI narrative: Patient is an 89-year-old male who presents to the emergency department this evening with perfuse lower GI bleed. Patient does have a Watchman and is on aspirin and Plavix which he has been on for a while. Daughter is present with the patient and states that initially when they 1st started him on Plavix he did have an episode of a lower GI bleed requiring IV blood transfusion but since then he has done wonderfully on the Plavix and has not had any issues. Symptoms started around 7:00 p.m. and patient has been having at least 2 large bowel movements filled with bright red blood every hour for the past 4 hours. Daughter states the patient did have a vasovagal syncopal episode while in the bathroom during 1 of those episodes. Patient complains of generalized weakness lightheadedness but denies any chest pain or abdominal pain. No additional symptoms or concerns at this time. Related Data Home Medications ?Medication ?Instructions ?Recorded ?Confirmed ?Last Taken ?Type naproxen 250 mg tablet 250 mg PO BID PRN 03/24/24 12/13/24 Unknown History simethicone 500 mg capsule 500 mg PO DAILY 03/24/24 12/13/24 Unknown History (Phazyme) cyclosporine 0.05 % eye drops in a 1 drp EACH EYE Q12H 08/04/24 12/13/24 Unknown History dropperette (Restasis) tamsulosin 0.4 mg capsule 0.4 mg PO QHS 08/04/24 12/13/24 Unknown History aspirin 81 mg tablet,delayed 81 mg PO DAILY 11/14/24 12/13/24 Unknown History release clopidogrel 75 mg tablet (Plavix) 75 mg PO DAILY 11/14/24 12/13/24 Unknown History Boswella BYMOUTH 11/17/24 12/13/24 Unknown History alpha lipoic acid 200 mg capsule 200 mg PO DAILY 11/17/24 12/13/24 Unknown History ascorbic acid (vitamin C) 500 mg mg PO 11/17/24 12/13/24 Unknown History capsule cholecalciferol (vitamin D3) 250 250 mcg PO DAILY 11/17/24 12/13/24 Unknown History mcg (10,000 unit) capsule magnesium aspartate HCl 61 mg (615 61 mg PO DAILY 11/17/24 12/13/24 Unknown History mg) tablet,delayed release melatonin 5 mg capsule mg PO 11/17/24 12/13/24 Unknown History metoprolol succinate 25 mg 12.5 mg PO DAILY 11/17/24 12/13/24 Unknown History tablet,extended release 24 hr sacubitril 24 mg-valsartan 26 mg 1 tablet PO BID 11/17/24 12/13/24 Unknown History tablet (Entresto) turmeric 400 mg capsule mg PO 11/17/24 12/13/24 Unknown History vitamin B complex 1 cap PO DAILY 11/17/24 12/13/24 Unknown History vitamin E (dl, acetate) 180 mg 180 mg PO DAILY 11/17/24 12/13/24 Unknown History (400 unit) capsule zinc acetate 50 mg (zinc) capsule 50 mg PO DAILY 11/17/24 12/13/24 Unknown History (Galzin) Allergies Allergy/AdvReac Type Severity Reaction Status Date / Time No Known Allergies Allergy Verified 03/04/25 23:56 Review of Systems 2 Review of Systems: All systems are reviewed and are negative unless stated otherwise in the HPI. [facility] Past Medical History Medical History GERD (gastroesophageal reflux disease) Benign essential hypertension Grade II diastolic dysfunction BMI 28.0-28.9,adult BMI 32.0-32.9,adult Low hemoglobin and low hematocrit Rectal bleeding Encounter for routine adult health examination with abnormal findings Skin tag Right hip pain Pain of finger of right hand Other viral warts Low back pain at multiple sites Light-headed feeling Gross hematuria Cold intolerance Chronic right shoulder pain Choking episode BMI 33.0-33.9,adult Type 2 diabetes mellitus without complications BMI 35.0-35.9,adult Ear pain Chronic cough Follow up Overactive bladder Abnormal thyroid blood test A-fib Parkinsons Hearing loss Vitamin D deficiency Abnormal finding of blood chemistry Elevated PSA Tremor Persistent postural-perceptual dizziness Urinary frequency BPPV (benign paroxysmal positional vertigo) BMI 34.0-34.9,adult Hx of colonic polyps Depressed mood BPH (benign prostatic hyperplasia) Chronic low back pain Peripheral neuropathy VICK on CPAP Hyperlipidemia Encounter for routine adult health examination without abnormal findings 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 Cardiac pacemaker in situ Surgical History Surgical History S/P cataract extraction Family History Family History Mother Family history of Alzheimer's disease Sibling Family history of diabetes mellitus in first degree relative Social History Social History Smoking status: Never smoker Second hand tobacco smoke exposure: No Alcohol intake: current Substance use: never Substance use type: does not use Lack of Transportation: No Lack of Food: Never True Current Housing: I Have Housing Concerned About Future Housing: No Difficulty Paying Gas/Electric Bills: No Difficulty Paying for Meds: No Education: Master's Degree or Higher Difficulty w/ Childcare or Family Care: No Living arrangements: with family Occupation/Education: retired Gender identity (if verbalized by the patient): Male Spiritual care concerns: No Exam 2 Narrative: General: Alert, awake, afebrile, in no acute distress, pale. HEENT: PERRL, no rhinorrhea, no post nasal drip, oropharynx clear. Neck: Trachea midline, no JVD, no lymphadenopathy. Cardiovascular: Regular rate and rhythm, no murmurs, rubs or gallops, no peripheral edema. Respiratory: Clear to auscultation bilaterally, no tachypnea, no wheezing, no rhonchi, no rubs, no respiratory distress. Abdomen: Soft, nontender, nondistended, no rebound, no guarding, no peritoneal signs. Rectal: Bright red blood, fecal occult blood test positive otherwise good rectal tone, no evidence of hemorrhoids or fissures. Musculoskeletal: No joint swelling or deformity, normal muscle tone. Skin: No rashes or petechia, no signs of infection. Psychiatric: Alert and oriented, normal behavior and judgment for situation. Neurological: Alert and oriented to person, place, and time. Follows all commands. No focal deficits, speech is clear and fluent. Course Vital Signs Vital signs: Vital Signs Temperature 97.9 F 03/04/25 22:49 Pulse Rate 76 03/04/25 22:49 Respiratory Rate 16 03/04/25 22:49 Blood Pressure 103/58 L 03/04/25 22:49 Pulse Oximetry 100 03/04/25 22:49 Oxygen Delivery Room Air 03/04/25 22:49 Temperature 97.9 F 03/05/25 02:14 Pulse Rate 80 03/05/25 02:20 Respiratory Rate 15 03/05/25 02:20 Blood Pressure 101/84 03/05/25 02:20 Pulse Oximetry 100 03/05/25 02:20 Oxygen Delivery Room Air 03/04/25 22:49 Medical Decision Making MDM Narrative Medical decision making narrative: The patient was evaluated by myself in the emergency department. History is obtained from patient's who is an independent historian and physical exam was performed. External medical records were reviewed at this time. IV was established and pertinent tests were ordered. Patient did have another vasovagal syncopal episode while using the bedside commode. Patient was administered 1 L IV fluid bolus with normal saline due to concern for hyperkalemia likely secondary to blood loss anemia. EKG was obtained which revealed a paced rhythm rate 64 beats per minute, good capture, negative Sgarbossa EKG was independently interpreted by me and is currently pending official cardiology read. Laboratory results obtained revealing hemoglobin of 12.4. Patient's last documented hemoglobin from March of 2024 was noted to be 16. Repeat hemoglobin in our after patient's arrival revealed a hemoglobin of 11. BUN 29 otherwise remainder of the blood work is unremarkable. Imaging studies obtained included CTA abdomen and pelvis with IV contrast which was independently interpreted by me revealing active GI bleeding from the proximal colon likely diverticular bleed, which is pending final radiology interpretation. Differential diagnosis considerations include upper versus lower GI bleed, hypovolemic shock. Comorbidities impacting this visit include history of lower GI bleed. I have evaluated and discussed social determinants of health with the patient that could potentially impact subsequent diagnosis and treatment plans. On repeat assessment of the patient, reevaluation revealed that the patient is doing well and is in no acute distress. Patient symptoms have improved since he arrived to our emergency department. Repeat vital signs were all reviewed and noted to be stable. Differential diagnosis and treatment plan were discussed with the patient at bedside. Patient agrees with discussion and after shared medical decision making agrees with transfer. All questions were answered to the patient's satisfaction. [facility] transfer line was contacted at this time and transfer was initiated. Transfer was accepted under accepting physician Dr. Oliver as an ED to ED transfer at 0210. Critical care time of 77 minutes, exclusive of separately performed procedures, necessary for treating or preventing eminent or life-threatening deterioration of patient's condition of massive lower GI bleed requiring transfusion of multiple units of packed RBC, focused on patient care provided personally by me and time spent during initial evaluation, physical examination, ordering and performing treatments and interventions, ordering and reviewing laboratory studies, ordering and reviewing radiographic studies, re-evaluation of the patient's condition, evaluation of the patient's response to treatment, and discussion of patient case with multiple consultants. Vital Signs Vital Signs: Vital Signs Temperature 97.9 F 03/04/25 22:49 Pulse Rate 76 03/04/25 22:49 Respiratory Rate 16 03/04/25 22:49 Blood Pressure 103/58 L 03/04/25 22:49 Pulse Oximetry 100 03/04/25 22:49 Oxygen Delivery Room Air 03/04/25 22:49 Temperature 97.9 F 03/05/25 02:14 Pulse Rate 80 03/05/25 02:20 Respiratory Rate 15 03/05/25 02:20 Blood Pressure 101/84 03/05/25 02:20 Pulse Oximetry 100 03/05/25 02:20 Oxygen Delivery Room Air 03/04/25 22:49 Lab Data 03/05/25 00:33 03/04/25 23:02 Labs: Lab Results 03/04/25 03/04/25 03/04/25 Range/Units 23:02 23:02 23:02 WBC 6.9 (4.5-10.0) K/mm3 RBC 4.65 (4.6-6.20) M/mm3 Hgb 12.4 L D (14.0-18.0) g/dL Hct 39.4 L (42.0-52.0) % MCV 84.7 (80-100) fl MCH 26.7 (26-34) pg MCHC 31.5 L (32-36) g/dl RDW 15.6 H (11.5-14.5) % Plt Count 226 (150-375) k/mm3 MPV 11.1 H (7.4-10.4) fl Immature Gran % (Auto) 0.4 (0-0.5) % Neut % (Auto) 71.0 (45.5-73.1) % Lymph % (Auto) 15.2 L (18.3-44.2) % [place] % (Auto) 11.1 H (2.6-8.5) % Eos % (Auto) 1.7 (0-4.4) % Baso % (Auto) 0.6 (0.2-1.2) % Lymph # (Auto) 1.04 (0.9-3.2) K/mm3 [place] # (Auto) 0.8 H (0.1-0.6) K/mm3 Eos # (Auto) 0.1 (0-0.3) K/mm3 Baso # (Auto) 0.0 (0.0-0.1) K/mm3 Abs Immat Gran (auto) 0.03 (0.00-0.031) K/mm3 Absolute Neuts (auto) 4.9 (1.3-6.7) K/mm3 Absolute Nucleated RBC 0.000 (0.0-0.012) K/mm3 Nucleated RBC % 0.0 (0.0-0.2) % PT 14.7 (11.1-14.7) Seconds INR 1.2 APTT 28.5 (22.3-36.8) Seconds Sodium Cancelled 138 Potassium Cancelled 4.6 Chloride Cancelled Carbon Dioxide Anion Gap BUN Creatinine Estim Creat Clear Calc Estimated GFR Glucose Calcium Magnesium (1.6-2.3) mg/dL Total Bilirubin AST ALT Alkaline Phosphatase Total Protein Albumin Lipase (23-300) U/L Blood Type Antibody Screen Crossmatch 03/04/25 03/04/25 03/04/25 Range/Units 23:02 23:02 23:02 WBC (4.5-10.0) K/mm3 RBC (4.6-6.20) M/mm3 Hgb (14.0-18.0) g/dL Hct (42.0-52.0) % MCV (80-100) fl MCH (26-34) pg MCHC (32-36) g/dl RDW (11.5-14.5) % Plt Count (150-375) k/mm3 MPV (7.4-10.4) fl Immature Gran % (Auto) (0-0.5) % Neut % (Auto) (45.5-73.1) % Lymph % (Auto) (18.3-44.2) % [place] % (Auto) (2.6-8.5) % Eos % (Auto) (0-4.4) % Baso % (Auto) (0.2-1.2) % Lymph # (Auto) (0.9-3.2) K/mm3 [place] # (Auto) (0.1-0.6) K/mm3 Eos # (Auto) (0-0.3) K/mm3 Baso # (Auto) (0.0-0.1) K/mm3 Abs Immat Gran (auto) (0.00-0.031) K/mm3 Absolute Neuts (auto) (1.3-6.7) K/mm3 Absolute Nucleated RBC (0.0-0.012) K/mm3 Nucleated RBC % (0.0-0.2) % PT (11.1-14.7) Seconds INR APTT (22.3-36.8) Seconds Sodium Potassium Chloride 106 Carbon Dioxide Cancelled 24 Anion Gap Cancelled 8 BUN Cancelled Creatinine Estim Creat Clear Calc Estimated GFR Glucose Calcium Magnesium (1.6-2.3) mg/dL Total Bilirubin AST ALT Alkaline Phosphatase Total Protein Albumin Lipase (23-300) U/L Blood Type Antibody Screen Crossmatch 03/04/25 03/04/25 03/04/25 Range/Units 23:02 23:02 23:02 WBC (4.5-10.0) K/mm3 RBC (4.6-6.20) M/mm3 Hgb (14.0-18.0) g/dL Hct (42.0-52.0) % MCV (80-100) fl MCH (26-34) pg MCHC (32-36) g/dl RDW (11.5-14.5) % Plt Count (150-375) k/mm3 MPV (7.4-10.4) fl Immature Gran % (Auto) (0-0.5) % Neut % (Auto) (45.5-73.1) % Lymph % (Auto) (18.3-44.2) % [place] % (Auto) (2.6-8.5) % Eos % (Auto) (0-4.4) % Baso % (Auto) (0.2-1.2) % Lymph # (Auto) (0.9-3.2) K/mm3 [place] # (Auto) (0.1-0.6) K/mm3 Eos # (Auto) (0-0.3) K/mm3 Baso # (Auto) (0.0-0.1) K/mm3 Abs Immat Gran (auto) (0.00-0.031) K/mm3 Absolute Neuts (auto) (1.3-6.7) K/mm3 Absolute Nucleated RBC (0.0-0.012) K/mm3 Nucleated RBC % (0.0-0.2) % PT (11.1-14.7) Seconds INR APTT (22.3-36.8) Seconds Sodium Potassium Chloride Carbon Dioxide Anion Gap BUN 29 H Creatinine Cancelled 1.18 Estim Creat Clear Calc Cancelled 41 Estimated GFR Cancelled Glucose Calcium Magnesium (1.6-2.3) mg/dL Total Bilirubin AST ALT Alkaline Phosphatase Total Protein Albumin Lipase (23-300) U/L Blood Type Antibody Screen Crossmatch 03/04/25 03/04/25 03/04/25 Range/Units 23:02 23:02 23:02 WBC (4.5-10.0) K/mm3 RBC (4.6-6.20) M/mm3 Hgb (14.0-18.0) g/dL Hct (42.0-52.0) % MCV (80-100) fl MCH (26-34) pg MCHC (32-36) g/dl RDW (11.5-14.5) % Plt Count (150-375) k/mm3 MPV (7.4-10.4) fl Immature Gran % (Auto) (0-0.5) % Neut % (Auto) (45.5-73.1) % Lymph % (Auto) (18.3-44.2) % [place] % (Auto) (2.6-8.5) % Eos % (Auto) (0-4.4) % Baso % (Auto) (0.2-1.2) % Lymph # (Auto) (0.9-3.2) K/mm3 [place] # (Auto) (0.1-0.6) K/mm3 Eos # (Auto) (0-0.3) K/mm3 Baso # (Auto) (0.0-0.1) K/mm3 Abs Immat Gran (auto) (0.00-0.031) K/mm3 Absolute Neuts (auto) (1.3-6.7) K/mm3 Absolute Nucleated RBC (0.0-0.012) K/mm3 Nucleated RBC % (0.0-0.2) % PT (11.1-14.7) Seconds INR APTT (22.3-36.8) Seconds Sodium Potassium Chloride Carbon Dioxide Anion Gap BUN Creatinine Estim Creat Clear Calc Estimated GFR 58 L Glucose Cancelled 106 Calcium Cancelled 8.5 Magnesium 2.5 H (1.6-2.3) mg/dL Total Bilirubin Cancelled AST ALT Alkaline Phosphatase Total Protein Albumin Lipase (23-300) U/L Blood Type Antibody Screen Crossmatch 03/04/25 03/04/25 03/04/25 Range/Units 23:02 23:02 23:02 WBC (4.5-10.0) K/mm3 RBC (4.6-6.20) M/mm3 Hgb (14.0-18.0) g/dL Hct (42.0-52.0) % MCV (80-100) fl MCH (26-34) pg MCHC (32-36) g/dl RDW (11.5-14.5) % Plt Count (150-375) k/mm3 MPV (7.4-10.4) fl Immature Gran % (Auto) (0-0.5) % Neut % (Auto) (45.5-73.1) % Lymph % (Auto) (18.3-44.2) % [place] % (Auto) (2.6-8.5) % Eos % (Auto) (0-4.4) % Baso % (Auto) (0.2-1.2) % Lymph # (Auto) (0.9-3.2) K/mm3 [place] # (Auto) (0.1-0.6) K/mm3 Eos # (Auto) (0-0.3) K/mm3 Baso # (Auto) (0.0-0.1) K/mm3 Abs Immat Gran (auto) (0.00-0.031) K/mm3 Absolute Neuts (auto) (1.3-6.7) K/mm3 Absolute Nucleated RBC (0.0-0.012) K/mm3 Nucleated RBC % (0.0-0.2) % PT (11.1-14.7) Seconds INR APTT (22.3-36.8) Seconds Sodium Potassium Chloride Carbon Dioxide Anion Gap BUN Creatinine Estim Creat Clear Calc Estimated GFR Glucose Calcium Magnesium (1.6-2.3) mg/dL Total Bilirubin 0.4 AST Cancelled 26 ALT Cancelled 14 Alkaline Phosphatase Cancelled Total Protein Albumin Lipase (23-300) U/L Blood Type Antibody Screen Crossmatch 03/04/25 03/04/25 03/04/25 Range/Units 23:02 23:02 23:02 WBC (4.5-10.0) K/mm3 RBC (4.6-6.20) M/mm3 Hgb (14.0-18.0) g/dL Hct (42.0-52.0) % MCV (80-100) fl MCH (26-34) pg MCHC (32-36) g/dl RDW (11.5-14.5) % Plt Count (150-375) k/mm3 MPV (7.4-10.4) fl Immature Gran % (Auto) (0-0.5) % Neut % (Auto) (45.5-73.1) % Lymph % (Auto) (18.3-44.2) % [place] % (Auto) (2.6-8.5) % Eos % (Auto) (0-4.4) % Baso % (Auto) (0.2-1.2) % Lymph # (Auto) (0.9-3.2) K/mm3 [place] # (Auto) (0.1-0.6) K/mm3 Eos # (Auto) (0-0.3) K/mm3 Baso # (Auto) (0.0-0.1) K/mm3 Abs Immat Gran (auto) (0.00-0.031) K/mm3 Absolute Neuts (auto) (1.3-6.7) K/mm3 Absolute Nucleated RBC (0.0-0.012) K/mm3 Nucleated RBC % (0.0-0.2) % PT (11.1-14.7) Seconds INR APTT (22.3-36.8) Seconds Sodium Potassium Chloride Carbon Dioxide Anion Gap BUN Creatinine Estim Creat Clear Calc Estimated GFR Glucose Calcium Magnesium (1.6-2.3) mg/dL Total Bilirubin AST ALT Alkaline Phosphatase 56 Total Protein Cancelled 6.0 L Albumin Cancelled 3.5 Lipase 125 (23-300) U/L Blood Type B Positive Antibody Screen Negative Crossmatch See Detail 03/05/25 Range/Units 00:33 WBC (4.5-10.0) K/mm3 RBC (4.6-6.20) M/mm3 Hgb 11.0 L (14.0-18.0) g/dL Hct 35.1 L (42.0-52.0) % MCV (80-100) fl MCH (26-34) pg MCHC (32-36) g/dl RDW (11.5-14.5) % Plt Count (150-375) k/mm3 MPV (7.4-10.4) fl Immature Gran % (Auto) (0-0.5) % Neut % (Auto) (45.5-73.1) % Lymph % (Auto) (18.3-44.2) % [place] % (Auto) (2.6-8.5) % Eos % (Auto) (0-4.4) % Baso % (Auto) (0.2-1.2) % Lymph # (Auto) (0.9-3.2) K/mm3 [place] # (Auto) (0.1-0.6) K/mm3 Eos # (Auto) (0-0.3) K/mm3 Baso # (Auto) (0.0-0.1) K/mm3 Abs Immat Gran (auto) (0.00-0.031) K/mm3 Absolute Neuts (auto) (1.3-6.7) K/mm3 Absolute Nucleated RBC (0.0-0.012) K/mm3 Nucleated RBC % (0.0-0.2) % PT (11.1-14.7) Seconds INR APTT (22.3-36.8) Seconds Sodium Potassium Chloride Carbon Dioxide Anion Gap BUN Creatinine Estim Creat Clear Calc Estimated GFR Glucose Calcium Magnesium (1.6-2.3) mg/dL Total Bilirubin AST ALT Alkaline Phosphatase Total Protein Albumin Lipase (23-300) U/L Blood Type Antibody Screen Crossmatch Critical Care Time Critical Care Time Critical Care Time: Yes Total Critical Care Time: 77 (Please refer to [facility] for attestation) Discharge Plan Discharge Clinical Impression: Acute lower gastrointestinal bleeding, Hypovolemic shock Patient Disposition: Acute Care Hospital Condition: Critical Patient Language: Kitt[place] Prescriptions: No Action naproxen 250 mg tablet 250 mg PO BID PRN Phazyme 500 mg capsule 500 mg PO DAILY Entresto 24-26 mg tablet 1 tablet PO BID vitamin E (dl, acetate) 180 mg (400 unit) capsule 180 mg PO DAILY vitamin B complex Capsule 1 cap PO DAILY Rx Instructions: 100mg turmeric 400 mg capsule PO Rx Instructions: Take 1 300 tab @ lunch, take 800mg lunch alpha lipoic acid 200 mg capsule 200 mg PO DAILY Boswella BYMOUTH melatonin 5 mg capsule PO magnesium aspartate HCl 61 mg (615 mg) tablet,delayed release (DR/EC) 61 mg PO DAILY ascorbic acid (vitamin C) 500 mg capsule PO Galzin 50 mg (zinc) capsule 50 mg PO DAILY cholecalciferol (vitamin D3) 250 mcg (10,000 unit) capsule 250 mcg PO DAILY metoprolol succinate 25 mg tablet extended release 24 hr 12.5 mg PO DAILY famotidine 40 mg tablet 40 mg PO DAILY Qty: 90 1RF polyethylene glycol 3350 [Miralax] 17 gram powder in packet 17 g PO DAILY Qty: 30 0RF tamsulosin 0.4 mg capsule 0.4 mg PO QHS cyclosporine [Restasis] 0.05 % dropperette 1 drp EACH EYE Q12H metformin 500 mg tablet See Rx Instructions .ROUTE .COMPLEX Qty: 180 1RF Dose Instruction: TAKE 1 TABLET BY MOUTH TWICE A DAY Rx Instructions: TAKE 1 TABLET BY MOUTH TWICE A DAY rosuvastatin 20 mg tablet 20 mg PO DAILY Qty: 90 1RF azelastine 137 mcg (0.1 %) spray,non-aerosol See Rx Instructions .ROUTE .COMPLEX PRN (Reason: Allergy Symptoms) Qty: 30 0RF Rx Instructions: USE 1 SPRAY INTO EACH NOSTRIL EVERY 12 HOURS aspirin 81 mg tablet,delayed release (DR/EC) 81 mg PO DAILY clopidogrel [Plavix] 75 mg tablet 75 mg PO DAILY finasteride 5 mg tablet See Rx Instructions .ROUTE .COMPLEX Qty: 90 1RF Dose Instruction: TAKE 1 TABLET BY MOUTH EVERY DAY Rx Instructions: TAKE 1 TABLET BY MOUTH EVERY DAY venlafaxine 150 mg capsule,extended release 24hr See Rx Instructions .ROUTE .COMPLEX Qty: 90 1RF Dose Instruction: TAKE 1 CAPSULE BY MOUTH EVERY DAY Rx Instructions: TAKE 1 CAPSULE BY MOUTH EVERY DAY carbidopa-levodopa 25-100 mg tablet See Rx Instructions .ROUTE .COMPLEX Qty: 360 0RF Dose Instruction: TAKE 1 TABLET BY MOUTH FOUR TIMES A DAY Rx Instructions: TAKE 1 TABLET BY MOUTH FOUR TIMES A DAY hydrocodone-acetaminophen 5-325 mg tablet 1 tablet PO QID PRN (Reason: pain) Qty: 30 0RF Toviaz 4 mg tablet extended release 24 hr 4 mg PO DAILY Qty: 90 3RF Rx Instructions: Send to [facility] fax:[phone] escitalopram oxalate 20 mg tablet See Rx Instructions .ROUTE .COMPLEX Qty: 90 0RF Dose Instruction: TAKE 1 TABLET BY MOUTH EVERY DAY Rx Instructions: TAKE 1 TABLET BY MOUTH EVERY DAY Follow-up/Referrals: Maynor Tavarez MD [Primary Care Provider] - Time of Disposition: 02:26
[2025-03-05] MEDS: SODIUM CHLORIDE 0.9% IV 250 ML 30 ML IV CONT (01:57)
[2025-03-05] MEDS: TUBING, BLOOD SET 1 EACH XX ×2 (01:57)
[2025-03-05] MEDS: SODIUM CHLORIDE 0.9% IV 250 ML 500 ML (01:58)
== END 2025-03-05 03:14 | disposition short-term general hospital (02) ==
PROVIDERS: Emergency Provider Emergency Medicine; PCP Internal Medicine
DX: K92.2 Gastrointestinal hemorrhage, unspecified (principal); R57.1 Hypovolemic shock; G20.A1 Parkinson's disease without dyskinesia, without mention of fluctuations; I48.91 Unspecified atrial fibrillation; I11.9 Hypertensive heart disease without heart failure; E11.9 Type 2 diabetes mellitus without complications; E55.9 Vitamin D deficiency, unspecified; K21.9 Gastro-esophageal reflux disease without esophagitis; N40.0 Benign prostatic hyperplasia without lower urinary tract symptoms; G47.33 Obstructive sleep apnea (adult) (pediatric); E78.5 Hyperlipidemia, unspecified; Z95.0 Presence of cardiac pacemaker; Z95.818 Presence of other cardiac implants and grafts; Z98.49 Cataract extraction status, unspecified eye; Z79.82 Long term (current) use of aspirin; Z79.02 Long term (current) use of antithrombotics/antiplatelets; Z79.899 Other long term (current) drug therapy; Z79.84 Long term (current) use of oral hypoglycemic drugs
CPT/HCPCS: 36415; 36430; 71045; 74174; 80053; 83690; 83735; 85014; 85018; 85025; 85610; 85730; 86850; 86900; 86901; 86923; 93005; 96361; 96374; 99291; J2405; J7030; J7050; P9016; Q9967